=== PATIENT | male | born 1955 | race Caucasian/White ===

== ENCOUNTER 2019-07-12 18:32 | Inpatient (IN) ==
[2019-07-12 20:09] LABS: Hematocrit (blood only) 44.7 % (42-52); Hemoglobin 15.8 g/dL (14.0-18.0); Mean Corpuscular Hemoglobin 32.5 pg (25-34); Mean Corpuscular Hgb Conc 35.3 g/dL (32-36); Mean Platelet Volume 9.3 fL (7.4-10.4); Platelet Count 233 K/uL (130-400); RDW Coefficient of Variation 13.7 % (11.5-14.5); RDW Standard Deviation 45.8 fL (36.4-46.3); Red Blood Count 4.86 M/uL (4.7-6.1); White Blood Count 7.21 K/uL (4.8-10.8)
--- NOTE | 2019-07-12 20:11 | CT Scan Report ---
CT head/brain wo con CLINICAL HISTORY: 64 years-old Male with stroke/TIA symptoms. Acute strokelike symptoms TECHNIQUE: Multiple axial CT images of the head were obtained without contrast. A dose lowering tech nique was utilized adhering to the principles of ALARA. CT DOSE: 537.48 mGy.cm COMPARISON: None. FINDINGS: No acute intracranial hemorrhage, midline shift, intracranial mass, hydrocephalus, territorial ischem ia or abnormal extra-axial collection. The calvarium is intact. Trace bilateral mastoid effusions. Mild mucosal thickening of the paranasal sinuses. Soft tissues and orbits are unremarkable. IMPRESSION: No acute intracranial abnormality. The above report was generated using voice recognition software. It may contain grammatical, syntax o r spelling errors. Electronically signed by: Wagner Bermeo M.D. 07/12/2019 8:10 PM
[2019-07-12 20:22] LABS: Partial Thromboplastin Ratio 1.1; Partial Thromboplastin Time 29.3 Seconds (21.0-31.0); Prothrombin Time 10.4 Seconds (9.0-12.0)
[2019-07-12 20:27] LABS: Albumin Level 3.9 gm/dl (3.4-5.0); BUN Creatinine Ratio 11.8 (10-20); Calcium 9.6 mg/dl (8.5-10.1); Creatinine Clr Calc Pharmacy 92.1 ml/min; Est GFR (African American) 99.5; Est GFR (Non-African American) 85.8; Magnesium 2.2 mg/dl (1.8-2.4); Potassium 4.3 mmol/L (3.5-5.1)
[2019-07-12 20:33] LABS: Bilirubin,Total 0.7 mg/dl (0.2-1); Globulin 3.8 gm/dl (2.5-4.0); Total Protein 7.7 gm/dl (6.4-8.2)
--- NOTE | 2019-07-12 21:09 | XRay Report ---
XR chest 1V portable HISTORY: 64 years-old Male stroke alert acute stroke like symptoms COMPARISON: None available TECHNIQUE: Portable AP view of the chest FINDINGS: Cardiomediastinal and hilar silhouettes are within normal limits. Mild wall thickening of the lung ap ices. Mild chronic interstitial coarsening of the lung bases. Suggested emphysema. No pneumothorax, p leural effusion, focal airspace consolidation or overt pulmonary edema. Degenerative changes of the s houlders and spine. Mild convex left curvature of the upper thoracic spine. IMPRESSION: No acute process. The above report was generated using voice recognition software. It may contain grammatical, syntax o r spelling errors. Electronically signed by: Wagner Bermeo M.D. 07/12/2019 9:07 PM
[2019-07-12] MEDS ORDERED: OPTIRAY 320 125ml IV PRN (21:46)
--- NOTE | 2019-07-12 22:05 | CT Scan Report ---
CT angio neck with con, CT angio head w con CLINICAL HISTORY: 64 years-old Male with Pt c/o word aphasia. Acute strokelike symptoms COMPARISON STUDY: CT of the head of same day TECHNIQUE: Following the IV administration of 118 mL of Optiray 320, CT angiogram of the head and nec k was performed from the aortic arch to the skull apex. Images are reviewed in the axial, sagittal, a nd coronal planes. 3-D MIPS images are created and assessed. IV contrast was administered without com plication. All measurements were calculated based on NASCET criteria. A dose lowering technique was utilized adhering to the principles of ALARA. FINDINGS: Unremarkable thoracic aortic arch. Patency of the imaged bilateral subclavian arteries. Patent bilate ral common carotid arteries. Internal carotid arteries, middle and anterior cerebral arteries are wid eliana patent and unremarkable. Codominant vertebral arteries and basilar artery appear normal and paten t. origin of the left posterior cerebral artery. Bilateral posterior cerebral arteries are valencia nt. Cerebral venous sinuses are patent. No abnormal intra-axial enhancement. No pneumothorax. Mild pleural parenchymal scarring of the lung apices. Soft tissues are unremarkable. Mild paranasal sinus disease. No acute fracture. Degenerative changes noted about the spine. IMPRESSION:Unremarkable CTA of the head and neck The above report was generated using voice recognition software. It may contain grammatical, syntax o r spelling errors. Electronically signed by: Wagner Bermeo M.D. 07/12/2019 10:03 PM
[2019-07-12] MEDS ORDERED: MAGNESIUM SULFATE / D5W 1 GM/100 ML BAG IV ONE (23:54)
[2019-07-12] MEDS ORDERED: ASPIRIN CHEW 324 MG PO STA (23:54)
--- NOTE | 2019-07-13 00:06 | Emergency Department Note ---
Entered by Margo Santana acting as a scribe for Alex Tomlin MD History of Present Illness General Chief complaint: Illness Stated complaint: slight TIA symptoms around 0930 am Time Seen by Provider: 07/12/19 20:14 Source: patient History of Present Illness Onset (ago): hour(s) Location: head (Neruologic deficit) Pain Consistency: + other (Episode) Maximum Pain Intensity: 0 Quality: + other (Neurologic deficit) Associated symptoms: + other (Positive trouble reading/speaking words. Negative falls, dizziness.) Treatments prior to arrival: none The patient is a 64 year old male presenting to the Emergency Department atiya vásquez of an episode of an episode of a neurologic deficit starting at 0930 this morning. The patient reports that he was reading this morning and was having trouble reading the beginning of a word. He explains that he could see the entire word but could only read and speak the second half of words with 3 or more syllables. He notes that this episode lasted for about 15 to 30 minutes. He adds that he has felt normal since this event. The patient reports that he doesnt have a PCP as he just moved to the [facility]. He notes that he has never experienced these symptoms before. He notes that he took no medications for this episode [employer]. He denies falls, dizziness, feeling off balance, smoking tobacco and drug use. Home Medications Home Medications Medication Instructions Recorded Confirmed Type cholecalciferol (vitamin D3) 1,000 unit PO DAILY 07/12/19 07/12/19 History [Vitamin D3] Allergies Allergy/AdvReac Type Severity Reaction Status Date / Time No Known Allergies Allergy Verified 07/12/19 23:41 Past Med/Surg History Medical History Hypochondriacal disorder Surgical History History of knee surgery Social History Feels Safe at Home: Yes Smoking Status: Never smoker Review of Systems See HPI for pertinent positives & negatives. and A total of 10 systems reviewed and were otherwise negative Physical Exam Vital Signs Vital Signs - 24 hr 07/12/19 19:18 07/12/19 20:29 07/12/19 20:30 Temperature 36.8 C 36.8 C Temperature Source Oral Oral Sepsis Recent Fever Within 48 Hours No Sepsis Action Taken by Nursing No Action Required Pulse Rate 75 63 Pulse Rate [Left Apical] 58 L Respiratory Rate 20 20 17 Respiratory Effort / Characteristics Non-Labored Non-Labored Respiratory Depth Normal Normal Blood Pressure 165/125 H 120/61 Blood Pressure [Right Arm] 117/59 L Blood Pressure Mean 138 80 Blood Pressure Mean [Right Arm] 78 Pulse Oximetry 99 99 Oxygen Delivery Method Room Air Room Air 07/12/19 21:00 07/12/19 21:30 07/13/19 00:00 Temperature Temperature Source Sepsis Recent Fever Within 48 Hours Sepsis Action Taken by Nursing Pulse Rate 57 L 60 Pulse Rate [Left Apical] 57 L Respiratory Rate 15 19 Respiratory Effort / Characteristics Non-Labored Respiratory Depth Normal Blood Pressure 116/67 146/79 H Blood Pressure [Right Arm] 165/93 H Blood Pressure Mean 83 101 Blood Pressure Mean [Right Arm] 117 Pulse Oximetry 99 99 Oxygen Delivery Method Room Air GENERAL: Awake, alert, well-appearing, in no acute distress HENT: Normocephalic, atraumatic. Oropharynx unremarkable. EYES: Normal conjunctiva. Sclera non-icteric. NECK: Supple. No nuchal rigidity. FROM. No JVD. RESPIRATORY: Clear to auscultation. CARDIAC: Regular rate, normal rhythm. Extremities warm and well perfused. Pulses equal. ABDOMEN: Soft, non-distended. No tenderness to palpation. No rebound or guarding. No masses. RECTAL: Deferred. MUSCULOSKELETAL: Chest examination reveals no tenderness. The back is symmetrical on inspection without obvious abnormality. There is no CVA tenderness to palpation. No joint edema. LOWER EXTREMITIES: Calves are equal size bilaterally and non-tender. No edema. No discoloration. NEURO: Normal sensorium. No sensory or motor deficits noted. SKIN: No rash or jaundice noted. Course 1929: The patient was evaluated in room B6, and a complete history and physical examination were performed. 2229: I reevaluated the patient at this time. Administered Medications Ioversol (Optiray 320 125ml) 118 ml IV ONCE PRN PRN Reason: Interaction Checking Stop: 07/16/19 21:45 Last Admin: 07/12/19 21:47 Dose: 118 ml Documented by: [id number] Medical Decision Making Differential Diagnosis Differential diagnosis: Etiologies such as metabolic, infection, hypo/hyperglycemia, electrolyte ab normalities, cardiac sources, intracerebral event, toxicologic, neurologic, as well as others were entertained. Medical Records Attestation: I reviewed the patient's medical records. Home Medications Current Medication List: was personally reviewed by me Laboratory Data Attestation: I reviewed the patient's lab results. Result diagrams: 07/12/19 19:48 07/12/19 19:48 Lab Results 07/12/19 07/12/19 07/12/19 Range/Units 19:48 19:48 19:48 WBC 7.21 (4.8-10.8) K/uL RBC 4.86 (4.7-6.1) M/uL Hgb 15.8 (14.0-18.0) g/dL Hct 44.7 (42-52) % MCV 92.0 (80-100) fL MCH 32.5 (25-34) pg MCHC 35.3 (32-36) g/dL RDW Std Deviation 45.8 (36.4-46.3) fL RDW Coeff of Moustapha 13.7 (11.5-14.5) % Plt Count 233 (130-400) K/uL MPV 9.3 (7.4-10.4) fL PT 10.4 (9.0-12.0) Seconds INR 1.0 (0.9-1.1) APTT 29.3 (21.0-31.0) Seconds PTT Ratio 1.1 Sodium 139 (136-145) mmol/L Potassium 4.3 (3.5-5.1) mmol/L Chloride 107 (98-107) mmol/L Carbon Dioxide 29 (21-32) mmol/L Anion Gap 3.0 (3-11) BUN 11 (7-18) mg/dl Creatinine 0.93 (0.6-1.4) mg/dl Est Cr Clr Drug Dosing 92.1 ml/min Est GFR ( Amer) 99.5 Est GFR (Non-Af Amer) 85.8 BUN/Creatinine Ratio 11.8 (10-20) Glucose 91 (70-99) mg/dl Calcium 9.6 (8.5-10.1) mg/dl Magnesium 2.2 (1.8-2.4) mg/dl Total Bilirubin 0.7 (0.2-1) mg/dl AST 19 (15-37) U/L ALT 24 (12-78) U/L Alkaline Phosphatase 97 (45-117) U/L Total Protein 7.7 (6.4-8.2) gm/dl Albumin 3.9 (3.4-5.0) gm/dl Globulin 3.8 (2.5-4.0) gm/dl Albumin/Globulin Ratio 1.0 (0.9-2) Imaging Data Radiologist's Impression: Radiology results as stated below per my review and the radiologist's interpretation: CT head/brain wo con CLINICAL HISTORY: 64 years-old Male with stroke/TIA symptoms. Acute strokelike symptoms TECHNIQUE: Multiple axial CT images of the head were obtained without contrast. A dose lowering technique was utilized adhering to the principles of ALARA. CT DOSE: 537.48 mGy.cm COMPARISON: None. FINDINGS: No acute intracranial hemorrhage, midline shift, intracranial mass, hydrocephalus, territorial ischemia or abnormal extra-axial collection. The calvarium is intact. Trace bilateral mastoid effusions. Mild mucosal thickening of the paranasal sinuses. Soft tissues and orbits are unremarkable. IMPRESSION: No acute intracranial abnormality. The above report was generated using voice recognition software. It may contain grammatical, syntax or spelling errors. Electronically signed by: Wagner Bermeo M.D. 07/12/2019 8:[address] angio neck with con, CT angio head w con CLINICAL HISTORY: 64 years-old Male with Pt c/o word aphasia. Acute strokelike symptoms COMPARISON STUDY: CT of the head of same day TECHNIQUE: Following the IV administration of 118 mL of Optiray 320, CT angiogram of the head and neck was performed from the aortic arch to the skull apex. Images are reviewed in the axial, sagittal, and coronal planes. 3-D MIPS images are created and assessed. IV contrast was administered without complication. All measurements were calculated based on NASCET criteria. A dose lowering technique was utilized adhering to the principles of ALARA. FINDINGS: Unremarkable thoracic aortic arch. Patency of the imaged bilateral subclavian arteries. Patent bilateral common carotid arteries. Internal carotid arteries, middle and anterior cerebral arteries are widely patent and unremarkable. Codominant vertebral arteries and basilar artery appear normal and patent. origin of the left posterior cerebral artery. Bilateral posterior cerebral arteries are patent. Cerebral venous sinuses are patent. No abnormal intra-axial enhancement. No pneumothorax. Mild pleural parenchymal scarring of the lung apices. Soft tissues are unremarkable. Mild paranasal sinus disease. No acute fracture. Degenerative changes noted about the spine. IMPRESSION:Unremarkable CTA of the head and neck The above report was generated using voice recognition software. It may contain grammatical, syntax or spelling errors. Electronically signed by: Wagner Bermeo M.D. 07/12/2019 10:[address] angio neck with con, CT angio head w con CLINICAL HISTORY: 64 years-old Male with Pt c/o word aphasia. Acute strokelike symptoms COMPARISON STUDY: CT of the head of same day TECHNIQUE: Following the IV administration of 118 mL of Optiray 320, CT angiogram of the head and neck was performed from the aortic arch to the skull apex. Images are reviewed in the axial, sagittal, and coronal planes. 3-D MIPS images are created and assessed. IV contrast was administered without complication. All measurements were calculated based on NASCET criteria. A dose lowering technique was utilized adhering to the principles of ALARA. FINDINGS: Unremarkable thoracic aortic arch. Patency of the imaged bilateral subclavian arteries. Patent bilateral common carotid arteries. Internal carotid arteries, middle and anterior cerebral arteries are widely patent and unremarkable. Codominant vertebral arteries and basilar artery appear normal and patent. origin of the left posterior cerebral artery. Bilateral posterior cerebral arteries are patent. Cerebral venous sinuses are patent. No abnormal intra-axial enhancement. No pneumothorax. Mild pleural parenchymal scarring of the lung apices. Soft tissues are unremarkable. Mild paranasal sinus disease. No acute fracture. Degenerative changes noted about the spine. IMPRESSION:Unremarkable CTA of the head and neck The above report was generated using voice recognition software. It may contain grammatical, syntax or spelling errors. Electronically signed by: Wagner Bermeo M.D. 07/12/2019 10:03 PM XR chest 1V portable HISTORY: 64 years-old Male stroke alert acute stroke like symptoms COMPARISON: None available TECHNIQUE: Portable AP view of the chest FINDINGS: Cardiomediastinal and hilar silhouettes are within normal limits. Mild wall thickening of the lung apices. Mild chronic interstitial coarsening of the lung bases. Suggested emphysema. No pneumothorax, pleural effusion, focal airspace consolidation or overt pulmonary edema. Degenerative changes of the shoulders and spine. Mild convex left curvature of the upper thoracic spine. IMPRESSION: No acute process. The above report was generated using voice recognition software. It may contain grammatical, syntax or spelling errors. Electronically signed by: Wagner Bermeo M.D. 07/12/2019 9:07 PM MRI of the head: Couple small foci of restricted diffusion/infarcts in the right occipital lobe, mild involutional changes. Mild sinus mucosal thickening. ECG Data Attestation: I personally reviewed and interpreted this ECG as follows: Indication: altered mental status Rate (beats per minute): 71 Rhythm: normal sinus Findings: no ST depression, no ST elevation, no acute ischemic change and no prolonged QT Comparison ECG Date: no prior available Blood Pressure Blood Pressure Findings: Elevated blood pressure MDM Narrative This is a 64-year-old male who presents emergency department complaining of issues with his vision that started earlier today. By the time the patient arrived in the emergency department his symptoms have resolved. Patient was sent for CT of the head as well as a CTA of the head and neck. This does not show any acute process. Using shared medical decision-making with the patient along with the fact that the patient does not have a primary care physician here we made the decision to send the patient for an MRI of the head. This was concerning for 2 CVAs in the occipital lobe. I believe that this would be consistent with the patient's visual disturbance. I discussed my findings with the patient and his . As he does not have a primary care physician the d ecision was made to admit him to the hospital. He was given 324 mg of aspirin here as well as magnesium. I did discuss the case with the hospitalist service who agreed to admit the patient. Patient and family were in agreement with the treatment plan. Impression & Plan Visual disturbance, Acute CVA (cerebrovascular accident), Hypertension Discharge Plan Visit Data Chief Complaint: Illness Stated Complaint: slight TIA symptoms around 0930 am ED Provider: Alex Tomlin Discharge Problem: Visual disturbance, Acute CVA (cerebrovascular accident), Hypertension Forms Stand Alone Forms: My [employer] Prescriptions Prescriptions: No Action cholecalciferol (vitamin D3) [Vitamin D3] 1,000 unit Capsule 1,000 unit PO DAILY RF: 0 Referrals Referrals: PCP,NO [Primary Care Provider] - The scribe's documentation has been prepared under my direction and personally reviewed by me in its entirety. I confirm that the note above accurately reflects all work, treatment, procedures, and medical decision making performed by me.
[2019-07-13 00:18] LABS: Thyroid Stimulating Hormone 2.91 uIu/ml (0.300-4.500)
--- NOTE | 2019-07-13 00:25 | History & Physical Report ---
Date of Service July 13, 2019 Assessment & Plan (1) Acute CVA (cerebrovascular accident): Rule out embolic etiology given MRI initial read findings Hypertension, elevated secondary to above History skin cancer left ear status post surgery Medical telemetry Neurochecks Aspirin, statin Rx for secondary stroke prevention Check lipid profile TTE RE stroke Neurology consult RE stroke Permissive hypertension for now. DVT prophylaxis. Lovenox subcu Full code History of Present Illness Chief Complaint: Reading problems Primary Care Provider: NO PCP History obtained from patient, family, and records. Medical history significant for skin cancer status post surgery. Patient recently relocated to [place] from [place], [place] to be with his . Yesterday morning patient encounter reading problems. Trouble understanding the right side of the word and not the left. Episode lasting about 15 minutes. Patient denies headache, extremity weakness, chest pain, S OB symptoms. No slurred speech as per account. Of note, patient was taking baby aspirin for years for unclear reasons up until a few weeks ago when when he read that he should not be taking it if without reason. [facility] for [facility]. Patient directed to the ER by [facility]. At the ER, aspirin given for stroke findings on MRI. 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 Allergies Allergy/AdvReac Type Severity Reaction Status Date / Time No Known Allergies Allergy Verified 07/12/19 23:41 Home Medications Home Medications Medication Instructions Recorded Confirmed Type cholecalciferol (vitamin D3) 1,000 unit PO DAILY 07/12/19 07/12/19 History [Vitamin D3] Past Med/Surg History Medical History Hypochondriacal disorder Surgical History History of knee surgery Social History Preferred Language: German Communication Ability: Effective 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 Required: No Beliefs That Will Affect Care: None Current Living Situation: Spouse Other Information That Helps Us Care for You: No Feels Safe at Home: Yes Safety Concerns: Feels Safe At This Time Smoking Status: Never smoker Do You Dip or Chew Tobacco: No ; Hx Alcohol Use: No Hx Substance Use: No Review of Systems Review of Systems: As per HPI, all 10 systems reviewed, all other ROS negative Physical Exam Physical Exam: GENERAL: Comfortable, no respiratory distress SKIN: Normal color, warm HEENT: [place] palpebral conjunctivae, no ptosis, dry buccal mucosa NECK : Supple, no tenderness CHEST : CTA, no tenderness HEART : Bradycardic, no obvious murmurs ABDOMEN: Some distention, nontender EXTREMITIES : No LE swelling/tenderness, no other conspicuous deformities noted NEUROLOGIC : Coherent, proficiently near and distance reading, bilateral EOM equal, no facial asymmetry, no other gross focality Results & Data Vital Signs (Past 12 Hours) Vital Signs Temp Pulse Pulse Resp BP BP Pulse Ox 07/13/19 00:00 57 L 19 165/93 H 99 07/12/19 21:30 60 19 146/79 H 99 07/12/19 21:00 57 L 15 116/67 07/12/19 20:30 63 17 120/61 07/12/19 20:29 36.8 C 58 L 20 117/59 L 99 07/12/19 19:18 36.8 C 75 20 165/125 H 99 Laboratory Results Laboratory Results WBC 7.21 K/uL (4.8-10.8) 07/12/19 19:48 RBC 4.86 M/uL (4.7-6.1) 07/12/19 19:48 Hgb 15.8 g/dL (14.0-18.0) 07/12/19 19:48 Hct 44.7 % (42-52) 07/12/19 19:48 MCV 92.0 fL (80-100) 07/12/19 19:48 MCH 32.5 pg (25-34) 07/12/19 19:48 MCHC 35.3 g/dL (32-36) 07/12/19 19:48 RDW Std Deviation 45.8 fL (36.4-46.3) 07/12/19 19:48 RDW Coeff of Moustapha 13.7 % (11.5-14.5) 07/12/19 19:48 Plt Count 233 K/uL (130-400) 07/12/19 19:48 MPV 9.3 fL (7.4-10.4) 07/12/19 19:48 PT 10.4 Seconds (9.0-12.0) 07/12/19 19:48 INR 1.0 (0.9-1.1) 07/12/19 19:48 APTT 29.3 Seconds (21.0-31.0) 07/12/19 19:48 PTT Ratio 1.1 07/12/19 19:48 Sodium 139 mmol/L (136-145) 07/12/19 19:48 Potassium 4.3 mmol/L (3.5-5.1) 07/12/19 19:48 Chloride 107 mmol/L (98-107) 07/12/19 19:48 Carbon Dioxide 29 mmol/L (21-32) 07/12/19 19:48 Anion Gap 3.0 (3-11) 07/12/19 19:48 BUN 11 mg/dl (7-18) 07/12/19 19:48 Creatinine 0.93 mg/dl (0.6-1.4) 07/12/19 19:48 Est Cr Clr Drug Dosing 92.1 ml/min 07/12/19 19:48 Est GFR ( Amer) 99.5 07/12/19 19:48 Est GFR (Non-Af Amer) 85.8 07/12/19 19:48 BUN/Creatinine Ratio 11.8 (10-20) 07/12/19 19:48 Glucose 91 mg/dl (70-99) 07/12/19 19:48 Calcium 9.6 mg/dl (8.5-10.1) 07/12/19 19:48 Magnesium 2.2 mg/dl (1.8-2.4) 07/12/19 19:48 Total Bilirubin 0.7 mg/dl (0.2-1) 07/12/19 19:48 AST 19 U/L (15-37) 07/12/19 19:48 ALT 24 U/L (12-78) 07/12/19 19:48 Alkaline Phosphatase 97 U/L (45-117) 07/12/19 19:48 Total Protein 7.7 gm/dl (6.4-8.2) 07/12/19 19:48 Albumin 3.9 gm/dl (3.4-5.0) 07/12/19 19:48 Globulin 3.8 gm/dl (2.5-4.0) 07/12/19 19:48 Albumin/Globulin Ratio 1.0 (0.9-2) 07/12/19 19:48 TSH 2.910 uIu/ml (0.300-4.500) 07/12/19 19:48 Diagnostic Findings MRI head initial read: Couple of small foci of restricted diffusion/infarcts right occipital lobe. Mild involutional changes. CTA head and neck: Unremarkable EKG as per my interpretation rate 65, NSR, RAD, incomplete right bundle branch block, no ischemia
[2019-07-13] MEDS ORDERED: ACETAMINOPHEN 325 MG TAB PO PRN (01:54)
[2019-07-13] MEDS ORDERED: NITROGLYCERIN SL 0.4 MG/TAB TAB SL PRN (01:54)
[2019-07-13] MEDS ORDERED: PROMETHAZINE HCL 12.5 MG in SODIUM CHLORIDE 0.9% 50 ML IV PRN (01:54)
[2019-07-13] MEDS ORDERED: SODIUM CHLORIDE 0.9% 1000ML 1,000 ML IV ONE (01:54)
[2019-07-13] MEDS ORDERED: PHARMACIST DISCHARGE MED REC CONSULT PRN (01:54)
--- NOTE | 2019-07-13 06:36 | Magnetic Resonance Report ---
MRI OF THE BRAIN WITHOUT CONTRAST CLINICAL HISTORY: Pt c/o word aphasia COMPARISON STUDY: Head CT and CTA of the head July 12, 2019. TECHNIQUE: Utilizing a 1.5 Jen magnet and dedicated coil, multiplanar, multiecho imaging of the bra in was performed without IV contrast. FINDINGS: A couple of punctate foci of restricted diffusion within the right occipital lobe on axial image 10 of 44 noted. There is no mass effect. There is minimal corresponding signal abnormality on t he coronal FLAIR sequence. Ventricular system is normal. Basilar cisterns are patent. There are no ex tra-axial collections. No intracranial masses are identified on this unenhanced examination. Mild sin us mucosal thickening is noted. Orbits are unremarkable. Calvarial signal is normal. IMPRESSION: 1. A couple of punctate acute infarcts within the right occipital lobe. 2. No acute intracranial hemorrhage or mass effect. Electronically signed by: Justin Berg M.D. 07/13/2019 6:35 AM
[2019-07-13 07:08] LABS: Basophils # (auto) 0.01 K/uL (0-0.2); Basophils % (auto) 0.2 %; Eosinophils # (auto) 0.17 K/uL (0-0.5); Eosinophils % (auto) 3.2 %; Hematocrit (blood only) 40.6 % (42-52); Hemoglobin 13.9 g/dL (14.0-18.0); Immature Granulocytes # (auto) 0.01 K/uL (0.00-0.02); Immature Granulocytes % (auto) 0.2 %; Lymphocytes # (auto) 1.41 K/uL (1.2-3.4); Lymphocytes % (auto) 26.6 %; Mean Corpuscular Hemoglobin 31.8 pg (25-34); Mean Corpuscular Hgb Conc 34.2 g/dL (32-36); Mean Corpuscular Volume 92.9 fL (80-100); Mean Platelet Volume 9.6 fL (7.4-10.4); Monocytes # (auto) 0.38 K/uL (0.11-0.59); Monocytes % (auto) 7.2 %; Neutrophils # (auto) 3.32 K/uL (1.4-6.5); Neutrophils % (auto) 62.6 %; Platelet Count 217 K/uL (130-400); RDW Coefficient of Variation 13.8 % (11.5-14.5); RDW Standard Deviation 46.4 fL (36.4-46.3); Red Blood Count 4.37 M/uL (4.7-6.1)
[2019-07-13 07:26] LABS: BUN Creatinine Ratio 11.4 (10-20); Calcium 8.9 mg/dl (8.5-10.1); Creatinine Clr Calc Pharmacy 100.7 ml/min; Est GFR (Non-African American) 91.4; Potassium 4.2 mmol/L (3.5-5.1)
[2019-07-13] MEDS ORDERED: ATORVASTATIN 40 MG TAB PO SCH (09:00)
[2019-07-13] MEDS ORDERED: ENOXAPARIN INJ 40 MG/0.4 ML SYR SQ SCH (09:00)
[2019-07-13] MEDS ORDERED: CHOLECALCIFEROL 1,000 UNITS TAB PO SCH (09:00)
--- NOTE | 2019-07-13 14:03 | Neurology Consultation ---
Date of Consultation July 13, 2019 Assessment & Plan (1) Acute CVA (cerebrovascular accident): 1. MRI with right occipital lobe infarct 2. CTA head and neck -no acute finding 3. TTE- no ASD 4. start plavix 75 mg and aspirin 81 mg daily for 21 days then stop plavix continue aspirin 5. optimize HTN, HLD LDL <70 6. need to establish with PCP 7. needs ophthalmology exam with visual webster prior to return to driving 8. life style changes with diet and exercise 9. ZIO out patient monitoring follow up in 4-6 week with Sveta CAPONE, neurology Supervising Physician Co-Signing Physician Notes Patient was seen and examined. I Agree with Sveta Melton PA-C as noted below. A 64 year old male not on ASA admitted with intermittent visual disturbance which has resolved. MRI reviewed shows punctate infarcts in right occipital lobe. Etiology looks embolic. CTA head and neck negative for high grade stenosis. TTE no cardiac source of embolism. On examine EOMI and VF appear full to confrontation. Recommend ASA 81 mg daily and PLavix 75 mg daily for 21- days then ASA 81 mg daily. Recommend Lipitor 40 mg daily. Recommend outpatient Clarita patch for eval of paroxysmal Afib. Outpatient follow up with neurology in 8-weeks. History of Present Illness Reason for Consultation: stroke Requesting Physician: Linda Velazquez DO Attending Physician: Linda Velazquez DO History of Present Illness Karl is a 64 year old male who has no significant PMH. He moved here recently and had not established with a PCP. He was at [facility] and was reading on his I pad and had a problem reading the words. This lasted about 15 minutes and resolved. He drove himself home and told his what happen and she wanted him to go to the ED. He stopped taking aspirin 81 mg about 3 months ago because he heard is caused bleeding. He had no slurred speech, facial droop. He did admit to doing some strenuous stretching movement of his neck prior to the event. He is currently not experiencing any issues, denies any family history of stroke. never smoked is retired from the [employer], minimal EtOH use, moderate caffeine use, no other drugs. denies CP, SOB, abdominal pain, one sided weakness, numbness tingling, V, N, current vision issues. Allergies Allergy/AdvReac Type Severity Reaction Status Date / Time No Known Allergies Allergy Verified 07/12/19 23:41 Home Medications Home Medications Medication Instructions Recorded Confirmed Type cholecalciferol (vitamin D3) 1,000 unit PO DAILY 07/12/19 07/12/19 History [Vitamin D3] aspirin 81 mg PO DAILY #90 tab 07/13/19 Rx atorvastatin 40 mg PO QAM #30 tab 07/13/19 Rx clopidogrel 75 mg PO DAILY #21 tab 07/13/19 Rx Patient History Medical History Hypochondriacal disorder Surgical History History of knee surgery Social History Preferred Language: Niuean Communication Ability: Effective Cloth Printer Required: No Beliefs That Will Affect Care: None Current Living Situation: Spouse Other Information That Helps Us Care for You: No Feels Safe at Home: Yes Safety Concerns: Feels Safe At This Time Smoking Status: Never smoker Do You Dip or Chew Tobacco: No ; Hx Alcohol Use: No Hx Substance Use: No Physical Exam Physical Exam: Physical Exam: Constitutional: appearance nourished, healthy and normal Ears, Nose, Mouth and Throat: mucous membranes moist, no injection and skin normal, eyes normal Cardiovascular: normal S-1 and S-2 and regular rate and rhythm Respiratory: clear to auscultation (CTA) and no rales, ronchi or wheeze Musculoskeletal: no peripheral edema and good distal pulses Skin: no stigmata of neurocutaneous disease noted and normal and intact Eyes: extraocular muscles intact (EOMI) and pupils equal, round and reactive to light (PERRL), gross visual webster intact NEUROLOGIC EXAMINATION: Mental status: Alert and interactive Oriented to full date and location Oriented to person Speech fluent with no evidence of aphasia Cranial Nerves smile eye brow raise symmetric Reflexes: Deep tendon reflexes were symmetrical and graded 2/5. Sensory: intact to light and cool touch Coordination: finger to nose no bi pass Gait/Stance: Posture normal. sitting in bed side chair Motor: Negative for pronator drift of out stretched arms with eyes closed. Strength: biceps triceps deltoids hand automotive brake adjuster bilaterally 5/5, hip flex 5/5 Results & Data Vital Signs (Past 12 Hours) Vital Signs Temp Pulse Pulse Pulse Resp BP Pulse Ox 07/13/19 12:15 36.7 C 58 L 18 116/67 98 07/13/19 09:24 49 L 07/13/19 07:53 36.6 C 48 L 18 124/67 100 07/13/19 07:18 49 L 07/13/19 04:27 36.4 C L 68 18 129/68 97 Laboratory Results Abnormal lab results 07/13/19 Range/Units 06:27 RBC 4.37 L (4.7-6.1) M/uL Hgb 13.9 L (14.0-18.0) g/dL Hct 40.6 L (42-52) % RDW Std Deviation 46.4 H (36.4-46.3) fL Diagnostic Findings CXR-No acute process. CT head-No acute intracranial abnormality. MRI brain -A couple of punctate acute infarcts within the right occipital lobe. No acute intracranial hemorrhage or mass effect. CTA head and neck-Unremarkable CTA of the head and neck TTE- 55-60% EF, no ASD
[2019-07-13 15:55] VITALS: BP 120/71; TEMP 98.4; O2SAT 95
[2019-07-13] MEDS ORDERED: STROKE PATIENT DISCHARGE STA (16:31)
--- NOTE | 2019-07-13 16:50 | Discharge Summary ---
Date of Service July 13, 2019 Admission HPI Per Admitting Provider History obtained from patient, family, and records. Medical history significant for skin cancer status post surgery. Patient recently relocated to [place] from [place], [place] to be with his . Yesterday morning patient encounter reading problems. Trouble understanding the right side of the word and not the left. Episode lasting about 15 minutes. Patient denies headache, extremity weakness, chest pain, S OB symptoms. No slurred speech as per account. Of note, patient was taking baby aspirin for years for unclear reasons up until a few weeks ago when when he read that he should not be taking it if without reason. Patient's called [facility] to inquire about available appointments for new patients. Patient directed to the ER by [facility]. At the ER, aspirin given for stroke findings on MRI. 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 Admission Exam Per Admitting Provider GENERAL: Comfortable, no respiratory distress SKIN: Normal color, warm HEENT: Lorane palpebral conjunctivae, no ptosis, dry buccal mucosa NECK : Supple, no tenderness CHEST : CTA, no tenderness HEART : Bradycardic, no obvious murmurs ABDOMEN: Some distention, nontender EXTREMITIES : No LE swelling/tenderness, no other conspicuous deformities noted NEUROLOGIC : Coherent, proficiently near and distance reading, bilateral EOM equal, no facial asymmetry, no other gross focality Principal Diagnosis CVA Discharge Data Allergies Allergy/AdvReac Type Severity Reaction Status Date / Time No Known Allergies Allergy Verified 07/12/19 23:41 Consultations 07/12/19 23:58 ED Decision to Admit Stat 07/13/19 01:54 Consult Case Management - Discharge Planning Routine Consult Neurology Routine Ordered Studies 07/12/19 19:28 CT head/brain wo con Stat 07/12/19 21:21 CT angio head w con Stat CT angio neck with con Stat MR brain wo con Urgent Hospital Course (1) Acute CVA (cerebrovascular accident): Admitted to the Hospitalist service and placed on telemetry with intermittent visual disturbances. Symptoms resolved on admission and did not return. MRI revealed punctate infarcts in the right occipital lobe. Etiology appeared embolic. CTA of head and neck were negative for high grade stenosis. TTE revealed no cardiac source of embolism. DAPT was recommended with ASA 81 and Plavix x 21 days, then ASA indefinitely. There were no noted arrhythmias on telemetry during his hospitalization but an event monitor was recommended at discharge to complete the workup. Outpatient follow-up with Neurology was rec ommended in 8 weeks time. At time of discharge he was hemodynamically stable and afebrile and was tolerating PO. He was mentating and ambulating at baseline with complete resolution of visual symptoms. Neuro exam was negative for gross focal deficits. Heart exam revealed a normal S1/2 with no murmurs, gallops or rubs. Lungs were clear to auscultation. He was discharged in stable condition with close primary care follow-up recommended. Total Time Total Time Spent Total Time Spent (In Minutes): 60 Total Time Includes: Examination of the Patient, Discharge Planning, Medication Reconciliation, Communication With Other Providers and Other (arranged outpatie nt follow-up) Discharge Plan Discharge Items Patient Disposition: Home - Self-Care Reason For Visit: CVA, PX REQ FOR PRIVATE ROOM Discharge Diagnosis: CVA Condition on Discharge: Good Activity: Resume your previous activity Non-emergency contact: Primary Care Provider and Neurologist Call non-emergency contact if: you have any medication questions, your symptoms worsen, your pain is not controlled, your pain is worsening, your pain is unusual for you, your pain is concerning for you and you have a fever Follow-up/Referrals: Gabriela Baez [Other] Diet: Regular Addtl Attending Provider Instructions: Please take all medications as instructed on discharge list below. You will need to take Plavix 75mg once/day for 21 days, and continue on aspirin therapy indefinitely. It is recommended that you undergo an event monitor (Zio patch) which you can obtain from your primary care provider at follow-up. Please follow-up with [facility] Neurology in 6-8 weeks for a recheck. You are scheduled with your primary care provider at the following time/date: 07/21/2019 1:00 PM Joan Baez DO [employer] Addtl Sexer Provider Instructions: Risk Factors for Stroke: You can reduce your chances of stroke by working with your medical provider to adopt a healthy lifestyle. Some specific ways to lower your chance of stroke are: * If you are a smoker, now is the time to stop smoking cigarettes * If you are diabetic, improve the control of your blood sugars * Avoid excessive amounts of alcohol * Control high blood pressure * Lose weight if you are overweight * Be sure to lead an active lifestyle * Eat a healthy diet low in salt, cholesterol and fat You should know about other risk factors for stroke that you are unable to control. These include: * Age 55 years or older * Male gender * Certain racial groups: , or / * Family History of Stroke, Mini stroke or Heart Attack * Sickle Cell Disease Follow Up: It is important for you to keep your follow up appointments with your medical provider. Who to Call and When: Medical Emergencies: Call 911 immediately if you experience any of the following warning signs and symptoms of Stroke: * Sudden numbness or weakness of the face, arm or leg, especially on one side of the body * Sudden confusion, trouble speaking or understanding * Sudden trouble seeing in one or both eyes * Sudden trouble walking, dizziness, loss of balance or coordination * Sudden severe headache with no cause Do not delay calling 911 if you experience any warning signs or symptoms of a stroke. Delay in seeking medical attention may affect what treatments can be given to you. . Pending Studies at Discharge: No Stand-Alone Forms: Medications to Prevent Stroke, My [facility] Medications and DC Order Prescriptions: New atorvastatin 40 mg Tablet 40 mg PO QAM Qty: 30 RF: 2 aspirin 81 mg tablet,delayed release (DR/EC) 81 mg PO DAILY Qty: 90 RF: 1 clopidogrel 75 mg tablet 75 mg PO DAILY Qty: 21 RF: 0 Continued cholecalciferol (vitamin D3) [Vitamin D3] 1,000 unit Capsule 1,000 unit PO DAILY RF: 0 Discharge Orders: Discharge Order (Routine); Ordered 07/13/19 Ordered By: Linda Velazquez Admission Data Admit Date/Time: 07/13/19 00:27 Attending Provider: Linda Velazquez Admit Provider: Gerald Conroy Primary Care Provider: PCP,NO Other Providers: Winston Martinez Other Interventions: Discharge Summary Assessment (RN) Last Done: 07/13/19 16:57 DC Date/Time DO NOT enter until pt leaves facility: 07/13/19 18:36
[2019-07-13 16:58] VITALS: PULSE 68
--- NOTE | 2019-07-13 17:10 | Pharmacy Report ---
Pharmacist Stroke Counseling - Date of Service July 13, 2019 - Scope: Pharmacy has been consulted to provide medication discharge counseling for this patient admitted with acute cerebrovascular accident and brain MRI showed right occipital lobe infarct as per the Pharmacist Discharge Counseling for Stroke Patients Protocol. - Medications on Discharge: Home Medications Medication Instructions Recorded Confirmed cholecalciferol (vitamin D3) 1,000 unit PO DAILY 07/12/19 07/12/19 [Vitamin D3] New Rx's Medication Instructions Recorded aspirin 81 mg PO DAILY #90 tab 07/13/19 atorvastatin 40 mg PO QAM #30 tab 07/13/19 clopidogrel 75 mg PO DAILY #21 tab 07/13/19 - Action: The above medications, specifically ones for stroke treatment/prophylaxis, have been reviewed in detail with the patient and/or patient vaccine customer representative(s) prior to discharge. This includes indication, common adverse reactions, drug interactions, and medication administration. Medication counseling has been employed using the teach-back method to ensure understanding. - Outcome: The patient and/or patient vaccine customer representative(s) have demonstrated understanding of the medications. Please note, they are aware that the pharmacist will call them within 72 hours post-discharge to confirm that the appropriate medications are being taken and answer any further medication related questions the patient might have at that time. Contact information Individual to be contacted: Patient Phone number: [phone] (cell) Best time to call: anytime of the day Additional comments: - Patient previously on baby aspirin, stopped taking approximately 3 months ago - Patient clearly understood all of his new medications including dosing and adverse effects - Patient understands to stop Plavix following 21 days of therapy Thank you for allowing pharmacy to be involved in the care of this patient. Please call [phone] or [phone] with any additional questions
[2019-07-14] MEDS ORDERED: ASPIRIN 325 MG ECTAB PO SCH (09:00)
--- NOTE | 2019-07-15 10:59 | Pharmacy Report ---
Pharmacist Post D/C Phone Note - Phone Note: Date of phone call: July 15, 2019. Individual with whom pharmacist spoke to: ILYA SOFIA Jr The following questions were reviewed during the phone call with responses listed below each: Can you tell me the medications that you are currently taking as well as when and how you take each medication? -See Table Below When have you missed any doses of your medications? - none What side effects are you having from your medications, specifically, the new medications you were started on? - none What questions do you have about your medications? - none What problems are you having obtaining your medications? - none - picked up everything from [facility] When is your next appointment with your primary care doctor? - ThursdayJul 20. Additional comments: - Patient very pleasant to speak with, he states he is doing great. Reviewed again to stop clopidogrel after 21 days, patient aware. As per the Pharmacist Discharge Counseling for Stroke Patients Protocol, this phone call has been completed within 72 hours of discharge. Thank you for allowing us to be involved in the care of this patient. - Home Medications: Home Medications Medication Instructions Recorded Confirmed cholecalciferol (vitamin D3) 1,000 unit PO DAILY 07/12/19 07/12/19 [Vitamin D3] New Rx's Medication Instructions Recorded aspirin 81 mg PO DAILY #90 tab 07/13/19 atorvastatin 40 mg PO QAM #30 tab 07/13/19 clopidogrel 75 mg PO DAILY #21 tab 07/13/19
== END 2019-07-13 18:36 | disposition home or self-care (01) | DRG 66 ==
LOC: ED 18:32 → 2N 07-13 00:27

== ENCOUNTER 2025-04-07 11:27 | Inpatient (IN) ==
[2025-04-07] MEDS: SODIUM CHLORIDE 0.9% 500 ML IV ONE (11:54)
--- NOTE | 2025-04-07 11:54 | Emergency Department Note ---
Impression & Plan Atrial fibrillation, History of CVA (cerebrovascular accident), Palpitations, Elevated troponin ED Provider Note NAME: ILYA SOFIA Jr AGE: 70 SEX: M : 1955 ARRIVES VIA: Walk-In INFORMANT: Patient ED PROVIDER(S): Bob Brakley DO CHIEF COMPLAINT: Elevated heart rate HPI: Patient is a 70-year-old male with a past medical history of CVA, hypertension who presents to the ER for an elevated heart rate. He notes he is has had this off and on for some years. He had a back in September for 2 weeks and prior to that he did have it as well. It went away. He is noticed it for the last 4 days off and on. He feels his heart racing. He denies any dizziness or lightheadedness. No chest pain or shortness of breath with it. No belly pain. No nausea, vomiting, or diarrhea. He is otherwise asymptomatic. He was at his PCPs office and was referred in. ADDITIONAL HISTORY OBTAINED: Per HPI Chronic Medical/Social Conditions Affecting Care: Per HPI PAST MEDICAL HISTORY:See Below PAST SURGICAL HISTORY:See Below FAMILY HISTORY:See Below SOCIAL HISTORY:See Below HOME MEDICATIONS:See Below ALLERGIES:See Below VITALS:See Below PHYSICAL EXAMINATION: GENERAL: Sitting up in bed, alert, well appearing, well nourished, no distress, non-toxic EYE EXAM: normal conjunctiva. OROPHARYNX: no exudate, no erythema, lips, buccal mucosa, and tongue normal and mucous membranes are moist NECK: supple, no nuchal rigidity, no adenopathy, non-tender LUNGS: Clear to auscultation. Normal chest wall mechanics HEART: no murmurs, S1 normal and S2 normal ABDOMEN: abdomen soft, non-tender, normo-active bowel sounds, no masses, no rebound or guarding. UPPER EXTREMITIES: upper extremities are grossly normal. LOWER EXTREMITIES: No pitting edema. Calves are equal bilaterally NEURO EXAM: Normal sensorium, cranial nerves II-XII grossly intact, normal speech, no gross weakness of arms, no gross weakness of legs. MEDICAL DECISION MAKING: Patient is a 70-year-old male who presents ER for palpitations. IV was established and blood work was obtained. External records were reviewed and showed a narrow complex tachycardia rate of 132, right axis, QTc 485. Labs show no significant leukocytosis or anemia. BMP with LFTs was unremarkable. T. bili is 1.4. Troponin elevated at 30. Lipase and TSH were unremarkable. Chest x- ray was unremarkable. Patient had several episodes of an atrial tachycardia so far today. Discussed case with Dr. aPulino from cardiology. He agreed with the admission and obtaining echo. Did recommend 2.5 Lopressor. Discussed case with the hospitalist for further evaluation management treatment. Again do favor the elevated troponin is likely rate related as external records show heart rate at the 140s. Consults/Care Managements Discussions: Per [facility] Triage Nursing notes reviewed. Limited review of prior medical records performed Vital Signs: reviewed and remarkable for no significant abnormalities Differential diagnosis: Cardiac ischemia, aortic dissection, pulmonary embolism, pneumothorax, pneumonia, pericarditis, myocarditis, esophageal rupture, GERD, cholecystitis, pancreatitis, musculoskeletal, as well as other pathologies. ER treatment provided: See below Diagnostics interpreted by me include EKG and cardiac monitoring as listed below: -Cardiac Monitoring: An order was placed for continuous cardiac monitoring. The monitor shows a rate of 90 with sinus rhythm. -ECG: A-fib. 93 Normal axis PVC QTc 442 -Laboratory studies:Interpreted by me as stated above in MDM and shown below. Imaging studies: Xrays: As interpreted by me: Portable AP upright 1 view of the chest shows no focal infiltrate CTs show: none Procedures:none Critical Care: None Past Med/Surg History Problem List (Updated 04/07/25 @ 17:52 by Bob Barkley DO) Elevated troponin (Acute) Palpitations (Acute) Atrial arrhythmia History of CVA (cerebrovascular accident) (Acute) Atrial fibrillation (Acute) Medical History (Updated 04/07/25 @ 17:52 by Bob Barkley DO) Hypochondriacal disorder Hypertension Acute CVA (cerebrovascular accident) Visual disturbance Arthritis BPH (benign prostatic hyperplasia) Peyronie's disease Erectile dysfunction Surgical History (Updated 04/07/25 @ 14:30 by NHUNG Alcantara) History of knee surgery Family History (Updated 04/07/25 @ 14:31 by NHUNG Alcantara) Grandmother (Maternal) Cancer Colon Father COPD (chronic obstructive pulmonary disease) Mother Parkinson disease Grandmother (Paternal) Alcohol abuse Cancer Social History (Updated 05/29/20 @ 14:45 by Saroj Calvillo LPN) Smoking Status: Never smoker Second Hand Exposure: No; Do You Dip or Chew Tobacco: No; Tobacco Cessation Education Requested by Patient: No Hx Alcohol Use: Yes Alcohol type: beer and wine Hx Substance Use: No Preferred Language: Icelandic Communication Ability: Effective Animal Groomer Required: No Beliefs That Will Affect Care: None marital status: Current Living Situation: Spouse and Family current occupational status: retired Other Information That Helps Us Care for You: No Feels Safe at Home: Yes Safety Concerns: Feels Safe At This Time Diet: regular Assistive Devices: Glasses Allergies Allergies Allergy/AdvReac Type Severity Reaction Status Date / Time No Known Allergies Allergy Verified 04/07/25 13:02 Home Meds Home Medications Medication Instructions Recorded Confirmed omega 9-eqy-psg-fish oil 1,200 mg 1 cap PO DAILY 05/29/20 04/07/25 (144 mg-216 mg) capsule (Fish Oil) tadalafil 20 mg tablet 20 mg PO DAILY PRN Sexual Activity 04/07/25 04/07/25 valacyclovir 1 gram tablet 2 mg PO Q12 PRN Cold Sores 04/07/25 04/07/25 vitamin B complex 1 tab PO DAILY 04/07/25 04/07/25 vitamin D3 1,250 mcg (50,000 1 cap PO DAILY 04/07/25 04/07/25 unit)-vitamin K2 200 mcg capsule Previous Rx's Medication Instructions Recorded aspirin 81 mg tablet,delayed 81 mg PO DAILY #90 tabs 07/13/19 release atorvastatin 40 mg tablet 40 mg PO QAM #30 tabs 07/13/19 Results & Data (ED) Vital Signs Vital Signs - 24 hr 04/07/25 11:33 04/07/25 11:51 04/07/25 11:51 Temperature 36.7 C Temperature Source Temporal Artery Scan Pulse Rate 93 H Pulse Rate [Apical] 91 H Pulse Rhythm Pulse Rhythm [Apical] Regular Pulse Strength [Apical] Normal Respiratory Rate 18 21 Respiratory Effort / Characteristics Non-Labored Spontaneous Non-Labored Spontaneous Respiratory Depth Normal Normal Respiratory Pattern Regular Blood Pressure 105/70 Blood Pressure [Right Arm] 114/82 Blood Pressure Mean 81 Blood Pressure Mean [Right Arm] 92 Blood Pressure Position [Right Arm] Sitting Pulse Oximetry 95 98 Oxygen Delivery Method Room Air Room Air Room Air Sepsis Recent Fever Within 48 Hours No Sepsis New/Unexplained Change in Mental Status N/A Sepsis Action Taken by Nursing No Action Required Pulse Oximetry Post Tiitration 98 07/11/25 11:51 04/07/25 12:20 04/07/25 13:27 Temperature Temperature Source Pulse Rate 90 59 L Pulse Rate [Apical] 76 Pulse Rhythm Regular Pulse Rhythm [Apical] Regular Pulse Strength [Apical] Normal Respiratory Rate 19 21 Respiratory Effort / Characteristics Non-Labored Spontaneous Respiratory Depth Normal Respiratory Pattern Regular Blood Pressure Blood Pressure [Right Arm] 134/78 Blood Pressure Mean Blood Pressure Mean [Right Arm] 96 Blood Pressure Position [Right Arm] Pulse Oximetry 98 99 Oxygen Delivery Method Room Air Room Air Sepsis Recent Fever Within 48 Hours Sepsis New/Unexplained Change in Mental Status Sepsis Action Taken by Nursing Pulse Oximetry Post Tiitration 04/07/25 14:03 Temperature Temperature Source Pulse Rate 93 H Pulse Rate [Apical] Pulse Rhythm Pulse Rhythm [Apical] Pulse Strength [Apical] Respiratory Rate Respiratory Effort / Characteristics Respiratory Depth Respiratory Pattern Blood Pressure 142/76 H Blood Pressure [Right Arm] Blood Pressure Mean Blood Pressure Mean [Right Arm] Blood Pressure Position [Right Arm] Pulse Oximetry Oxygen Delivery Method Sepsis Recent Fever Within 48 Hours Sepsis New/Unexplained Change in Mental Status Sepsis Action Taken by Nursing Pulse Oximetry Post Tiitration Laboratory Data 04/07/25 11:48 04/07/25 11:48 Lab Results 04/07/25 Range/Units 11:48 WBC 6.82 (4.8-10.8) K/ul RBC 4.78 (4.70-6.10) M/uL Hgb 15.1 (14.0-18.0) g/dl Hct 43.9 (42.0-52.0) % MCV 91.8 (80.0-100.0) fL MCH 31.6 (25.0-34.0) pg MCHC 34.4 (32.0-36.0) g/dL RDW Std Deviation 43.9 (36.4-46.3) fL RDW Coeff of Moustapha 12.9 (11.5-14.5) % Plt Count 235 (130-400) K/uL MPV 9.5 (9.4-12.4) fL Immature Gran % (Auto) 0.3 % Neut % (Auto) 78.0 % Lymph % (Auto) 13.9 % [place] % (Auto) 6.0 % Eos % (Auto) 1.5 % Baso % (Auto) 0.3 % Neut # (Auto) 5.32 (1.40-6.50) K/uL Lymph # (Auto) 0.95 L (1.20-3.40) K/uL [place] # (Auto) 0.41 (0.11-0.59) K/uL Eos # (Auto) 0.10 (0.00-0.50) K/uL Baso # (Auto) 0.02 (0.00-0.20) K/uL Immature Gran # (Auto) 0.02 (0.01-0.20) K/uL Sodium 138 (136-145) mmol/L Potassium 4.0 (3.5-5.1) mmol/L Chloride 106 (98-107) mmol/L Carbon Dioxide 28 (21-32) mmol/L Anion Gap 4 (3-11) BUN 11 (6-23) mg/dl Creatinine 1.00 (0.6-1.4) mg/dl Est Cr Clr Drug Dosing 78.8 ml/min eGFR 80.47 BUN/Creatinine Ratio 11.0 (10-20) Glucose 136 H (70-99(Fasting)) mg/dl Calcium 9.4 (8.6-10.3) mg/dl Total Bilirubin 1.4 H (0.2-1.0) mg/dl AST 24 (13-39) U/L ALT 20 (7-52) U/L Alkaline Phosphatase 73 (34-104) U/L Troponin I High Sens 31.9 H (0-20) pg/ml Total Protein 6.9 (6.0-8.3) gm/dl Albumin 3.8 (3.4-5.0) gm/dl Globulin 3.1 (2.5-4.0) gm/dl Albumin/Globulin Ratio 1.2 (0.9-2) Lipase 57 (11-82) U/L TSH 1.974 (0.300-4.500) uIu/ml Administered Medications Heparin Sodium/Dextrose (Heparin 45915 Unit/500 Ml D5w) 25,000 units in 500 mls @ 31 mls/hr IV .Q16H8M [facility]; Protocol Stop: 05/07/25 15:14 Last Admin: 04/07/25 15:26 Dose: 1,550 units/hr, 31 mls/hr Documented By: ALTAGRACIA Co-signed By: OJ Discontinued Medications Heparin Sodium/Dextrose (Heparin Iv Adult Wt-Based Standard *No* Initial Bolus Protocol) 1 each IV ONE STA; Protocol Stop: 04/07/25 14:30 Last Admin: 04/07/25 15:35 Dose: Not Given Documented By: ALTAGRACIA Sodium Chloride (Nss) 500 mls @ 999 mls/hr IV .Q31M ONE Stop: 04/07/25 12:16 Last Infusion: 04/07/25 12:59 Dose: Infused Documented By: Admin: 04/07/25 11:54 Dose: 999 mls/hr Documented By: ROGER Metoprolol Succinate (Metoprolol Succ 25mg Ext Rel Tab) 25 mg PO ONE ONE Stop: 04/07/25 14:46 Last Admin: 04/07/25 15:25 Dose: 25 mg Documented By: ALTAGRACIA Metoprolol Tartrate (Metoprolol Tartrate 1 Mg/Ml Vial) 2.5 mg IV NOW STA Stop: 04/07/25 13:25 Last Admin: 04/07/25 13:34 Dose: 2.5 mg Documented By: ROGER Imaging Data Radiologist's Impression: Chest X-Ray 04/07/25 11:46 XR chest 1V portable CLINICAL HISTORY: Chest pain, nonspecific COMPARISON STUDY: Chest radiograph July 12, 2019. FINDINGS: Lung volumes are normal. Lungs are clear. There is no pneumothorax or pleural effusion. Cardiac size is normal. Mediastinal contours are normal. There is no evidence for pulmonary edema. IMPRESSION: No acute cardiopulmonary findings. ACT 112: Negative or not required by law. Electronically signed by: Justin Berg M.D. 04/07/2025 12:09 PM Discharge Plan Visit Data Chief Complaint: Tachycardia Stated Complaint: TACHYCARDIA ED Provider: Bob Barkley Discharge Problem: Atrial fibrillation, History of CVA (cerebrovascular accident), Palpitations, Elevated troponin Patient Disposition: Admitted As Inpatient Condition: Fair Discharge Instructions Interventions: ED Discharge Assessment Last Done: 04/07/25 16:20 Discharge Problem: Atrial fibrillation Qualifiers: Atrial fibrillation type: unspecified Qualified Code(s): I48.91 - Unspecified atrial fibrillation
[2025-04-07 12:06] LABS: Hematocrit (blood only) 43.9 % (42.0-52.0); Hemoglobin 15.1 g/dl (14.0-18.0); Immature Granulocytes # (auto) 0.02 K/uL (0.01-0.20); Immature Granulocytes % (auto) 0.3 %; Mean Corpuscular Hemoglobin 31.6 pg (25.0-34.0); Mean Corpuscular Volume 91.8 fL (80.0-100.0); Platelet Count 235 K/uL (130-400); RDW Standard Deviation 43.9 fL (36.4-46.3); Red Blood Count 4.78 M/uL (4.70-6.10); White Blood Count 6.82 K/ul (4.8-10.8)
--- NOTE | 2025-04-07 12:10 | XRay Report ---
XR chest 1V portable CLINICAL HISTORY: Chest pain, nonspecific COMPARISON STUDY: Chest radiograph July 12, 2019. FINDINGS: Lung volumes are normal. Lungs are clear. There is no pneumothorax or pleural effusion. Car diac size is normal. Mediastinal contours are normal. There is no evidence for pulmonary edema. IMPRESSION: No acute cardiopulmonary findings. ACT 112: Negative or not required by law. Electronically signed by: Justin Berg M.D. 04/07/2025 12:09 PM
[2025-04-07 12:30] LABS: Alanine Aminotransferase 20.0 U/L (7-52); Albumin Globulin Ratio 1.2 (0.9-2); Alkaline Phosphatase 73.0 U/L (34-104); Anion Gap 4.0 (3-11); Bilirubin,Total 1.4 mg/dl (0.2-1.0); Blood Urea Nitrogen 11.0 mg/dl (6-23); Calcium 9.4 mg/dl (8.6-10.3); Carbon Dioxide 28.0 mmol/L (21-32); Chloride 106.0 mmol/L (98-107); Creatinine Clr Calc Pharmacy 78.8 ml/min; Globulin 3.1 gm/dl (2.5-4.0); Glucose 136.0 mg/dl (70-99(Fasting)); Lipase 57.0 U/L (11-82); Potassium 4.0 mmol/L (3.5-5.1); Sodium 138.0 mmol/L (136-145); Total Protein 6.9 gm/dl (6.0-8.3)
[2025-04-07 12:44] LABS: Thyroid Stimulating Hormone 1.974 uIu/ml (0.300-4.500)
[2025-04-07] MEDS: METOPROLOL TARTRATE 1 MG/ML VIAL IV STA (13:34)
--- NOTE | 2025-04-07 13:41 | Cardiology Consultation ---
Date of Consultation April 07, 2025 Assessment & Plan (1) Atrial fibrillation: (2) Atrial arrhythmia: (3) History of CVA (cerebrovascular accident): Plan Assessment: 70 year old male with PMHx of a CVA presents to the ER with intermittent episodes of palpitations. Initial EKG suggestive of SVT, repeat EKG suggestive of atrial fibrillation. Cardiology consulted for further assessment and recommendations. Plan: 1. Atrial fibrillation, paroxysmal 2. Atrial arrhythmia 3. History of CVA -Initial EKG at outpatient office suggestive of SVT, repeat EKG upon arrival to the ER suggestive Atrial fibrillation, rates 90's. patient received a one time dose of IV lopressor 2.5mg. -Review of telemetry demonstrates Atrial fibrillation with a conversion at 1211, NSR and also suggestive of an accelerated junctional rhythm. Given the fact that that patient had a CVA, would recommend that patient be started on anticoagulation. -Initial troponin with mild elevation, repeat and trend to peak -Start Heparin gtt -Start Toprol xl 25mg PO QD -Echocardiogram obtained, results pending. Further recommendations pending results as appropriate. Case has been discussed with Dr. Stevenson. Further recommendations regarding plan of care as per his assessment. I spent a total of 45 minutes on the date of service in preparation, delivery, documentation of the care provided to the patient excluding any time spent in the performance of separately billed services. NHUNG Treadwell [facility] Supervising Physician Co-Signing Physician Notes Attending attestation: Case reviewed with the advanced practitioner. I have personally performed a history and physical examination on the patient. I have reviewed the advanced practitioner's documentation on the date of service referenced in note, and I agree with, and take responsibility for the plan of care. Subjective: Patient with several months of progressive palpitations. Exam: Cardiovascular: Regular rhythm, no murmurs Data: Summary of echocardiogram performed 04/07/25 This study is technically adequate for evaluation of the referral indication. Sinus rhythm was present during echocardiogram study. There is mild concentric left ventricular hypertrophy. The left ventricular wall motion is normal. Left ventricular systolic function is low normal. Left Ventricular Ejection Fraction = 50-55%. The aortic root is borderline dilated, 3.8 cm. The proximal ascending order diameter is normal. Grade I diastolic dysfunction, (abnormal relaxation pattern). Impression/ Plan: (1) Subjective palpitations, with EKG/telemetry findings reviewed and consistent with supraventricular tachycardia, accelerated junctional rhythm, and likely paroxysmal atrial fibrillation in the setting of newly recognized bifascicular block. -History of stroke episode in 2019 at which time he presented with transient difficulty with processing his reading and MRI at that time revealed acute punctate right occipital lobe infarcts. Workup including echocardiogram and Zio patch negative at that time. -Given stroke history, recommend proceeding with unfractioned heparin infusion with plans to likely transition him to Eliquis tomorrow depending upon need for invasive procedure -High sensitive troponin mildly elevated with measurements of 31.9 and 48 PG per mL, without symptoms of angina without regional wall motion abnormalities. Likely related to tachycardia. -Consider pharmacologic nuclear stress testing as an outpatient after tachycardia issues optimized. -Proceed with metoprolol succinate 25 mg daily (2)History of ankylosing spondylitis -Echocardiogram reveals a trileaflet aortic valve with borderline dilatation of the aortic root, 3.8 cm. -Alkalizing spondylitis can also be associated with conduction system disease, and as noted, patient has bifascicular block which is new compared to 2019. I spent a total of 20 minutes coordinating, documenting, and providing care for this patient excluding time spent in the performance of separately billed services or time spent by another provider. Raymond Stevenson DO History of Present Illness Reason for Consultation: Arrhythmia Requesting Physician: Starr coleman History of Present Illness HPI: Patient is a 70 year old male with PMHx significant for CVA Jun 2019 (on ASA 81mg and Atorvastatin 40mg) that had presented to his PCP office today for a routine physical exam. Patient had expressed acute complaints of multiple episodes of his heart racing which are intermittent in nature with last episode approx 4 days ago. Patient states that the episodes are very random in nature, with no aggrevating or alleviating factors. they can happen with rest and with exertion, but not always with exertion. patient is physically active on a daily basis. He denies chest pain, pressure, palpitations, denies shortness of breath, PND, pre-syncope, syncope or edema. patient denies any recent acute URI symptoms, fevers, chills, no N/V/D, no reports of tick bites. patient states that he first noticed these palpitations in Sep 2024 when his son was hospitalized for several months with significant renal failure issues. episodes had spontaneously resolved for months until now. PCP obtained an EKG which was suggestive of a wide complex tachycardia; possible SVT and right BBB, LAFB. Rate 132bpm, QTc 485ms. Patient was recommended to present to the ER for further evaluation. Repeat EKG upon arrival to the ER with a reduced rate suggests Atrial fibrillation. Notation of T wave inversion in the inferior leads. Chest xray negative Initial troponin 31.9 Patient received 1 time dose of Lopressor 2.5mg IV at 1324. review of telemetry shows Conversion to NSR at 1211. Repeat EKG at the time of my arrival after 1400 suggest an accelerated junctional rhythm. PMHx: 1. Hx of CVA 2019 (placed on ASA and Atorvastatin) MRI dated 07/12/2019 [facility] as follows: IMPRESSION: 1. A couple of punctate acute infarcts within the right occipital lobe. 2. No acute intracranial hemorrhage or mass effect. 2. Ankylosing spondylitis Family history: Grandfather with hx of [place] Allergies Allergy/AdvReac Type Severity Reaction Status Date / Time No Known Allergies Allergy Verified 04/07/25 13:02 Home Medications Medication Instructions Recorded Confirmed Type aspirin 81 mg tablet,delayed 81 mg PO DAILY #90 tabs 07/13/19 04/07/25 Rx release atorvastatin 40 mg tablet 40 mg PO QAM #30 tabs 07/13/19 04/07/25 Rx omega 9-pem-aon-fish oil 1,200 mg 1 cap PO DAILY 05/29/20 04/07/25 History (144 mg-216 mg) capsule (Fish Oil) tadalafil 20 mg tablet 20 mg PO DAILY PRN Sexual Activity 04/07/25 04/07/25 History valacyclovir 1 gram tablet 2 mg PO Q12 PRN Cold Sores 04/07/25 04/07/25 History vitamin B complex 1 tab PO DAILY 04/07/25 04/07/25 History vitamin D3 1,250 mcg (50,000 1 cap PO DAILY 04/07/25 04/07/25 History unit)-vitamin K2 200 mcg capsule Patient History Medical History (Updated 04/07/25 @ 14:59 by NHUNG Treadwell) Hypochondriacal disorder Hypertension Acute CVA (cerebrovascular accident) Visual disturbance Arthritis BPH (benign prostatic hyperplasia) Peyronie's disease Erectile dysfunction Surgical History (Updated 04/07/25 @ 14:30 by NHUNG Alcantara) History of knee surgery Family History (Updated 04/07/25 @ 14:31 by NHUNG Alcantara) Grandmother (Maternal) Cancer Colon Father COPD (chronic obstructive pulmonary disease) Mother Parkinson disease Grandmother (Paternal) Alcohol abuse Cancer Social History (Updated 05/29/20 @ 14:45 by Saroj Calvillo LPN) Smoking Status: Never smoker Do You Dip or Chew Tobacco: No; Hx Alcohol Use: No Hx Substance Use: No Preferred Language: Bulgarian Communication Ability: Effective Joint Machine Operator Required: No Beliefs That Will Affect Care: None marital status: Current Living Situation: Spouse current occupational status: retired Feels Safe at Home: Yes Diet: regular Assistive Devices: None Review of Systems Review of Systems: All systems reviewed & are unremarkable except as noted in HPI & below Physical Exam Constitutional: well developed and well nourished; no acute distress and not ill appearing Neck: normal visual inspection and trachea midline Respiratory: normal respiratory effort, lungs clear to auscultation Cardiovascular: Rate/Rhythm: regular rate and regular rhythm (review of telemetry shows intermittent episodes of A-fib as well) Heart Sounds: normal S1, normal S2 and + murmur (+1/6 systolic murmur) Vessels: dorsalis pedis pulses present; no JVD Extremities: no edema Skin: no rashes, warm and dry Psychiatric: A+Ox3, euthymic affect Results & Data Vital Signs (Past 12 Hours) Vital Signs Temp Pulse Pulse Resp BP BP Pulse Ox 04/07/25 12:20 59 L 04/07/25 11:51 90 19 98 04/07/25 11:51 91 H 21 114/82 98 04/07/25 11:51 04/07/25 11:33 36.7 C 93 H 18 105/70 95 O2 Del Method 04/07/25 12:20 04/07/25 11:51 Room Air 04/07/25 11:51 Room Air 04/07/25 11:51 Room Air 04/07/25 11:33 Room Air Laboratory Results Cardiac Enzymes 04/07/25 Range/Units 11:48 AST 24 (13-39) U/L Troponin I High Sens 31.9 H (0-20) pg/ml CBC 04/07/25 Range/Units 11:48 WBC 6.82 (4.8-10.8) K/ul RBC 4.78 (4.70-6.10) M/uL Hgb 15.1 (14.0-18.0) g/dl Hct 43.9 (42.0-52.0) % Plt Count 235 (130-400) K/uL Neut # (Auto) 5.32 (1.40-6.50) K/uL Lymph # (Auto) 0.95 L (1.20-3.40) K/uL [place] # (Auto) 0.41 (0.11-0.59) K/uL Eos # (Auto) 0.10 (0.00-0.50) K/uL Baso # (Auto) 0.02 (0.00-0.20) K/uL Comprehensive Metabolic Panel 04/07/25 Range/Units 11:48 Sodium 138 (136-145) mmol/L Potassium 4.0 (3.5-5.1) mmol/L Chloride 106 (98-107) mmol/L Carbon Dioxide 28 (21-32) mmol/L BUN 11 (6-23) mg/dl Creatinine 1.00 (0.6-1.4) mg/dl Glucose 136 H (70-99(Fasting)) mg/dl Calcium 9.4 (8.6-10.3) mg/dl AST 24 (13-39) U/L ALT 20 (7-52) U/L Alkaline Phosphatase 73 (34-104) U/L Total Protein 6.9 (6.0-8.3) gm/dl Albumin 3.8 (3.4-5.0) gm/dl Intake and Output 04/06/25 04/07/25 04/07/25 22:59 06:59 14:59 Intake Total 500 / 500 Balance 500 / 500 Intake: IV 500 / 500 Sodium Chloride 0.9% 500 ml @ 500 / 500 999 mls/hr IV .Q31M ONE Rx#: [id number] Other: Weight 88.9 kg Weight Measurement Method Chair Scale Patient Weight 04/08/25 06:59 Weight 88.9 kg PG Care Time/CCT Total # of Minutes Spent Total Time Spent with Patient: Total time spent is greater than 50% in coordination of care (as documented) at patient's floor/unit and/or counseling patient: Coding Level of Care Code 01015 IN/OBS CONSULT LVL 5,80M Diagnoses Atrial fibrillation I48.91 Atrial arrhythmia I49.8 History of CVA (cerebrovascular accident) Z86.73 Time Spent (min) 45
--- NOTE | 2025-04-07 13:49 | History & Physical Report ---
Date of Service April 07, 2025 Assessment & Plan (1) Atrial fibrillation: (2) Atrial arrhythmia: (3) History of CVA (cerebrovascular accident): Plan 70 year old male with PMH significant for CVA (2018) and ankylosing spondylitis who presented to the ED on 04/07/2025 as a referral from his PCP appointment where he reported heart racing and had an abnormal EKG and is being admitted for new onset A fib. New onset atrial fibrillation EKG from PCP with wide QRS and RBBB at rate of 132bpm Repeat EKG in the ED suggesting atrial fibrillation at 93bpm s/p 2.5mg IV metoprolol tartrate and 25mg PO metoprolol succinate in the ED Converted to NSR with rates in the 80s Echo pending Admit to tele Monitor labs and replete as necessary Cardiology consulted: appreciate recs -Heparin gtt -Metoprolol succinate 25mg daily Elevated troponin Initial 31.9, repeat pending History of CVA Continue aspirin and atorvastatin DVT Prophylaxis: Heparin gtt Code Status: FULL CODE - As per discussion at bedside with the patient. PCP: Macho Bennett Disposition: admit to tele Patient seen in collaboration with Dr Quinteros. Please see addendum. I spent a total of 70 minutes coordinating, documenting and providing care for this patient excluding time spent in the performance of separately billed services or time spent by another provider/QHP. Admission and Anticipated Discharge Date Admission Date: 04/07/2025 History of Present Illness Chief Complaint: heart racing Primary Care Provider: Macho Bennett, 70 year old male with PMH significant for CVA (2018) and ankylosing spondylitis who presented to the ED on 04/07/2025 as a referral from his PCP appointment where he reported heart racing and had an abnormal EKG. Patient reports that he has been experiencing intermittent episodes of heart racing since September. Patient reports he had two weeks of heart racing in September while his son was hospitalized which resolved spontaneously. He then experienced similar episodes four days ago. He reports the episodes occur for 1-2 hours at a time and 1-2 times per day. He denies any associated symptoms including chest pain, SOB, dizziness, lightheadedness. He notes they seem to be perpetuated by anxiety. His notes that he sometimes wakes up in the middle of the night with heart racing. He denies fevers, chills, cough, cold symptoms, abdominal pain, N/V/D, dysuria, weakness, fatigue. He denies any tobacco, alcohol, drug intake. He lives at home with his and stepdaughter. Allergies Allergy/AdvReac Type Severity Reaction Status Date / Time No Known Allergies Allergy Verified 04/07/25 13:02 Home Medications Medication Instructions Recorded Confirmed Type aspirin 81 mg tablet,delayed 81 mg PO DAILY #90 tabs 07/13/19 04/07/25 Rx release atorvastatin 40 mg tablet 40 mg PO QAM #30 tabs 07/13/19 04/07/25 Rx omega 4-bgr-liw-fish oil 1,200 mg 1 cap PO DAILY 05/29/20 04/07/25 History (144 mg-216 mg) capsule (Fish Oil) tadalafil 20 mg tablet 20 mg PO DAILY PRN Sexual Activity 04/07/25 04/07/25 History valacyclovir 1 gram tablet 2 mg PO Q12 PRN Cold Sores 04/07/25 04/07/25 History vitamin B complex 1 tab PO DAILY 04/07/25 04/07/25 History vitamin D3 1,250 mcg (50,000 1 cap PO DAILY 04/07/25 04/07/25 History unit)-vitamin K2 200 mcg capsule Past Med/Surg History Problem List (Updated 04/07/25 @ 17:52 by Bob Barkley DO) Elevated troponin (Acute) Palpitations (Acute) Atrial arrhythmia History of CVA (cerebrovascular accident) (Acute) Atrial fibrillation (Acute) Medical History (Updated 04/07/25 @ 17:52 by Bob Barkley DO) Hypochondriacal disorder Hypertension Acute CVA (cerebrovascular accident) Visual disturbance Arthritis BPH (benign prostatic hyperplasia) Peyronie's disease Erectile dysfunction Surgical History (Updated 04/07/25 @ 14:30 by NHUNG Alcantara) History of knee surgery Family History (Updated 04/07/25 @ 14:31 by NHUNG Alcantara) Grandmother (Maternal) Cancer Colon Father COPD (chronic obstructive pulmonary disease) Mother Parkinson disease Grandmother (Paternal) Alcohol abuse Cancer Social History (Updated 05/29/20 @ 14:45 by Saroj Calvillo LPN) Smoking Status: Never smoker Second Hand Exposure: No; Do You Dip or Chew Tobacco: No; Tobacco Cessation Education Requested by Patient: No Hx Alcohol Use: Yes Alcohol type: beer and wine Hx Substance Use: No Preferred Language: Tajik Communication Ability: Effective Quality Eng Required: No Beliefs That Will Affect Care: None marital status: Current Living Situation: Spouse and Family current occupational status: retired Other Information That Helps Us Care for You: No Feels Safe at Home: Yes Safety Concerns: Feels Safe At This Time Diet: regular Assistive Devices: Glasses Review of Systems Review of Systems: All systems reviewed & are unremarkable except as noted in HPI & below Physical Exam Physical Exam: General/Psych: WD/WN, sitting up in bed, NAD, conversing easily, euthymic affect Head: normocephalic, atraumatic Eyes: normal inspection, PERRL, conjunctivae pink, anicteric sclerae ENT: external ear and nose normal, oropharynx normal Neck: normal visual inspection, trachea midline, no thyromegaly Respiratory: normal respiratory effort, lungs clear to auscultation, no wheeze/rales/rhonchi, no accessory muscle use Cardiovascular: regular rate and rhythm, no murmur/rub/gallop, no JVD Extremities: no cyanosis or clubbing, normal peripheral pulses, no BLE edema Abdomen/GI: normal bowel sounds, soft, nontender, no hepatosplenomegaly Neurologic/MSK: A+Ox3, motor strength 5/5, moves all extremities Skin: no rashes, normal color, warm and dry Results & Data Results & Data Vital Signs (Past 12 Hours) Vital Signs Temp Pulse Pulse Resp BP BP Pulse Ox 04/07/25 13:27 76 21 134/78 99 04/07/25 12:20 59 L 04/07/25 11:51 90 19 98 04/07/25 11:51 91 H 21 114/82 98 04/07/25 11:51 04/07/25 11:33 36.7 C 93 H 18 105/70 95 O2 Del Method 04/07/25 13:27 Room Air 04/07/25 12:20 04/07/25 11:51 Room Air 04/07/25 11:51 Room Air 04/07/25 11:51 Room Air 04/07/25 11:33 Room Air Laboratory Results Short CBC 04/07/25 Range/Units 11:48 WBC 6.82 (4.8-10.8) K/ul Hgb 15.1 (14.0-18.0) g/dl Hct 43.9 (42.0-52.0) % Plt Count 235 (130-400) K/uL BMP 04/07/25 11:48 Sodium 138 Potassium 4.0 Chloride 106 Carbon Dioxide 28 BUN 11 Creatinine 1.00 Glucose 136 H Calcium 9.4 Liver Function 04/07/25 Range/Units 11:48 Total Bilirubin 1.4 H (0.2-1.0) mg/dl AST 24 (13-39) U/L ALT 20 (7-52) U/L Alkaline Phosphatase 73 (34-104) U/L Albumin 3.8 (3.4-5.0) gm/dl I have independently reviewed and interpreted patient's admitting labs including CBC, CMP, troponin, TSH. Diagnostic Findings Chest X-Ray 04/07/25 11:46 XR chest 1V portable CLINICAL HISTORY: Chest pain, nonspecific COMPARISON STUDY: Chest radiograph July 12, 2019. FINDINGS: Lung volumes are normal. Lungs are clear. There is no pneumothorax or pleural effusion. Cardiac size is normal. Mediastinal contours are normal. There is no evidence for pulmonary edema. IMPRESSION: No acute cardiopulmonary findings. ACT 112: Negative or not required by law. Electronically signed by: Justin Berg M.D. 04/07/2025 12:09 PM ECG Additional Comments: I have independently reviewed and interpreted patient's admitting EKG which revealed: Atrial fibrillation at a rate of 92bpm; accelerated junctional rhythm with PVCs at a rate of 93bpm, NSR at a rate of 76bpm Code Status & VTE Plan Code Status Full Code Supervising Physician Co-Signing Physician Notes Attending Addendum: Case reviewed with the advanced practitioner. I have personally performed a history and physical examination on the patient. I have reviewed the advanced practitioner's documentation on the date of service referenced in note, and I agree with, and take responsibility for the plan of care. please refer to her notes for full details patient seen and examined, records reviewed by myself as well on exam, patient seen resting in bed, comfortable, sitting up no chest pain, dyspnea, palpitations, dizziness no other symptoms VS noted and reviewed oriented x 3, not in distress, speaks in sentences with no effort nor accessory muscle use normal rate, regular rhythm, no murmurs clear breath sounds bilaterally non distended, soft, nontender no bipedal edema, erythema, warmth no neuro deficits all labs, imaging noted and reviewed ASSESSMENT AND PLAN> ATRIAL FIBRILLATION IN RVR HISTORY OF CVA 2019 started on Metoprolol XL 25mg and Heparin drip at the ER converted to sinus rhythm asymptomatic, BP stable continue Heparin drip and Metoprolol XL for now TSH normal Echo ordered repeat labs in AM appreciate Cardiology service recommendations other diagnoses and plan of care as per advanced practitioner's notes I spent a total of 40 minutes coordinating, documenting, and providing care for this patient, excluding time spent in the performance of separately billed services or time spent by another provider/QHP. Toan Quinteros MD
[2025-04-07 15:13] LABS: Magnesium 2.1 mg/dl (1.7-2.4)
[2025-04-07] MEDS: METOPROLOL SUCC 25MG EXT REL TAB PO ONE (15:25)
[2025-04-07] MEDS: HEPARIN 25000 UNIT/500 ML D5W 25,000 UNITS/500 ML BAG IV SCH (15:26)
[2025-04-07] MEDS: Heparin IV Adult Wt-Based Standard *NO* INITIAL Bolus Protocol IV STA (15:35)
[2025-04-07] MEDS ORDERED: ONDANSETRON INJ 2 MG/ML 2 ML VIAL IV PRN (16:53)
[2025-04-07] MEDS ORDERED: POLYETHYLENE (MIRALAX) 17 GM PACK PO PRN (16:53)
[2025-04-07] MEDS ORDERED: ACETAMINOPHEN 325 MG TAB PO PRN (16:53)
[2025-04-07] MEDS ORDERED: PNEUMOCOCCAL VACCINE (PCV20) 20-VAL CONJ-DIP CRM/PF 0.5 ML SYR IM ONE (17:47)
[2025-04-07 19:12] LABS: INR 1.0 (0.9-1.1); Partial Thromboplastin Time 53 Seconds (21-31); Prothrombin Time 11.3 Seconds (9.0-12.0)
[2025-04-07 21:52] LABS: ANTI-Xa, UFH(UnfractionatedHep 0.64 IU/ml (0.3-0.7)
[2025-04-08 06:13] LABS: Anion Gap 3.0 (3-11); Blood Urea Nitrogen 14.0 mg/dl (6-23); Calcium 8.7 mg/dl (8.6-10.3); Carbon Dioxide 30.0 mmol/L (21-32); Chloride 106.0 mmol/L (98-107); Creatinine Clr Calc Pharmacy 78.8 ml/min; Glucose 83.0 mg/dl (70-99(Fasting)); Magnesium 1.9 mg/dl (1.7-2.4); Potassium 4.0 mmol/L (3.5-5.1); Sodium 139.0 mmol/L (136-145)
[2025-04-08 07:08] LABS: ANTI-Xa, UFH(UnfractionatedHep 1.08 IU/ml (0.3-0.7)
[2025-04-08] MEDS: OMEGA-3 (PURIFIED FISH OIL) 1 GM CAP PO SCH (09:00)
[2025-04-08] MEDS ORDERED: VITAMIN D3 VITAMIN K2 PO SCH (09:00)
[2025-04-08] MEDS: ATORVASTATIN 40 MG TAB PO SCH (09:00)
[2025-04-08] MEDS: METOPROLOL SUCC 25MG EXT REL TAB PO SCH (09:01)
[2025-04-08] MEDS: VITAMIN B COMPLEX TAB PO SCH (09:01)
--- NOTE | 2025-04-08 12:48 | Cardiology Progress Note ---
Date of Service April 08, 2025 Assessment & Plan (1) Elevated troponin: (2) Palpitations: (3) PAF (paroxysmal atrial fibrillation): (4) Accelerated junctional rhythm: (5) Sinus bradycardia: (6) History of CVA (cerebrovascular accident): Plan 70-year-old male with history of prior TIA/CVA admitted on April 07, 2025 with palpitations. EKG and telemetry with newly recognized bifascicular block, SVT, paroxysmal atrial fibrillation/flutter, accelerated junctional rhythm in the 70s, and bradycardia down into the 50s. No significant bradycardia or pauses noted on telemetry. Recommendations: * Repeat EKG * Transition unfractionated heparin to apixaban (Eliquis) of 5 mg twice per day * Continue metoprolol succinate 25 mg/day. * Outpatient pharmacological stress testing and 14-day ambulatory EKG * Possible future need for permanent pacemaker implantation discussed * Consider outpatient cardiac MRI, ? mildly abnormal myocardium appearance on echocardiography * Outpatient cardiology follow-up with Dr. Stevenson in 3 to 4 weeks Admission and Anticipated Discharge Date Admission Date: April 07, 2025 Supervising Physician Co-Signing Physician Notes I have personally performed a history and physical examination on the patient. I have reviewed the advance practitioner's documentation, and I agree with, and take responsibility for the plan of care. 70-year-old male with paroxysmal atrial fibrillation, accelerated junctional rhythm, and supraventricular tachycardia. Rhythm improved on telemetry. Continue metoprolol succinate and apixaban. Outpatient pharmacologic stress testing and 14-day ZIO monitor. Patient will be discharged today. Outpatient cardiology follow-up after completion of testing. Pastor Bates DO, [facility] Subjective Patient seen and examined. Chart, medications, telemetry reviewed. at bedside. Anxious. Intermittently aware of his heart, without overt tachypalpitations. No chest pain. No difficulty breathing. No orthopnea or PND. No peripheral edema. Review of Systems Review of Systems: Complete review of systems is otherwise listed above, negative, or noncontributory Physical Exam Physical Exam: General: A&Ox3. NAD. HENT: Normocephalic. Atraumatic. Eyes: PER. Conjunctiva pink, sclera clear. Neck: No JVD. Heart: RRR. Soft systolic murmur. Lungs: Clear to auscultation. Abdomen: +BS. Soft. Nontender. No masses or organomegaly. Extremities: No clubbing, cyanosis, or edema. Limited neurological examination is without focal deficits. Pulses: Posterior tibial=2/4. Results & Data Vital Signs (Past 12 Hours) Vital Signs Temp Pulse Pulse Resp BP Pulse Ox O2 Del Method 04/08/25 11:13 37.0 C 57 L 18 107/63 96 Room Air 04/08/25 10:00 49 L 04/08/25 08:08 36.7 C 51 L 17 114/59 L 98 Room Air 04/08/25 03:24 36.5 C 51 L 20 113/68 98 Room Air Laboratory Results Cardiac Enzymes 04/07/25 Range/Units 14:44 Troponin I High Sens 48.0 H D (0-20) pg/ml Coagulation 04/07/25 Range/Units 18:17 PT 11.3 (9.0-12.0) Seconds APTT 53 H (21-31) Seconds Comprehensive Metabolic Panel 04/08/25 Range/Units 05:23 Sodium 139 (136-145) mmol/L Potassium 4.0 (3.5-5.1) mmol/L Chloride 106 (98-107) mmol/L Carbon Dioxide 30 (21-32) mmol/L BUN 14 (6-23) mg/dl Creatinine 1.00 (0.6-1.4) mg/dl Glucose 83 (70-99(Fasting)) mg/dl Calcium 8.7 (8.6-10.3) mg/dl Intake and Output 04/07/25 04/08/25 04/08/25 22:59 06:59 14:59 Intake Total 313.667 / 1113.667 300 / 1113.667 378.716 / 378.716 Balance 313.667 / 1113.667 300 / 1113.667 378.716 / 378.716 Intake: IV 113.667 / 613.667 378.716 / 378.716 Heparin 20832 Unit/500 ml D5w 113.667 / 113.667 378.716 / 378.716 25,000 units In 500 ml @ 1,550 UNITS/HR 31 mls/hr IV .[id number] NOEMI Rx#:[id number] Oral 200 / 500 300 / 500 Other: # Unmeasured Voids 1 2 Weight 89.5 kg 89.2 kg Weight Measurement Method Built in [facility] Built in [facility] Diagnostic Findings April 07, 2025 TTE ([facility], Dr. Stevenson): Sinus rhythm was present during echocardiogram study. There is mild concentric left ventricular hypertrophy. The left ventricular wall motion is normal. Left ventricular systolic function is low normal. Left ventricular ejection fraction = 50-55%. The aortic root is borderline dilated, 3.8 cm. The proximal ascending order diameter is normal. Grade I diastolic dysfunction, (abnormal relaxation pattern). April 07, 2025 EKG with probable accelerated junctional rhythm with a ventricular rate of 76 bpm, right bundle branch block, left posterior fascicular block, bifascicular block. QTc 456 ms. Telemetry reviewed. Rhythm predominantly sinus with intermittent accelerated junctional rhythm and 70s, mild bradycardia into the 50s. No overt atrial fibrillation overnight. PG Care Time/CCT Total # of Minutes Spent Total Time Spent with Patient: Total time spent is greater than 50% in coordination of care (as documented) at patient's floor/unit and/or counseling patient: Coding Level of Care Code 70280 SUB INP/OBS CARE 3/50MIN Diagnoses Elevated troponin R79.89 Palpitations R00.2 PAF (paroxysmal atrial fibrillation) I48.0 Accelerated junctional rhythm I49.8 Sinus bradycardia R00.1 History of CVA (cerebrovascular accident) Z86.73
[2025-04-08] MEDS: ASPIRIN 81 MG ECTAB PO SCH (13:29)
--- NOTE | 2025-04-08 13:50 | Hospitalist Progress Note ---
Date of Service April 08, 2025 Assessment & Plan (1) Atrial fibrillation: (2) Atrial arrhythmia: (3) History of CVA (cerebrovascular accident): Plan 70 year old male with PMH significant for CVA (2019) and ankylosing spondylitis who presented to the ED on 04/07/2025 as a referral from his PCP appointment where he reported heart racing and had an abnormal EKG and is being admitted for new onset A fib. New onset atrial fibrillation Accelerated junctional rhythm EKG from PCP with wide QRS and RBBB at rate of 132bpm Repeat EKG in the ED suggesting atrial fibrillation at 93bpm Echocardiogram shows EF of 50 to 55%; mild concentric LVH. Grade 1 diastolic dysfunction. Aortic root is borderline dilated at 3.8 cm. Continue on metoprolol succinate 25 mg once a day; monitor on telemetry for pauses. Start on Eliquis for stroke prophylaxis Elevated troponin In setting of atrial fibrillation High sensitive troponin of 31.9; elevated up to 48 no chest pain Echo as above History of CVA -stop aspirin as Eliquis is started, continue on lipitor DVT Prophylaxis: Eliquis Code Status: FULL CODE - PCP: Macho Bennett Time spent evaluating patient, direct bedside care, chart review, placing orders, interpretation of diagnostic studies, discussion with consultants, patient, and family members, as well as other required patient management activities is 50 minutes Please note the above document was generated using voice recognition software. It may contain grammatical, syntax or spelling errors. Any formal questions or concerns about the content, text or information contained within the body of this dictation should be directly addressed to the provider for clarification Admission and Anticipated Discharge Date Admission Date: April 07, 2025 Subjective Patient seen and examined at bedside. He is comfortable; not in distress. Reports some intermittent palpitation. No chest pain. Review of Systems Review of Systems: All systems reviewed & are unremarkable except as noted in Subjective Physical Exam Physical Exam: Constitutional: WD/WN, vitals as above, NAD, sitting up in bed, pleasant, conversing easily Respiratory: normal respiratory effort, lungs clear to auscultation, no wheeze, rales, rhonchi. Normal insp/exp effort, no accessory muscle use Cardiovascular: irregular, no murmur, no edema Vessels: no JVD or carotid bruit Chest: normal inspection of chest Abdomen: normal bowel sounds, soft, nontender, no hepatosplenomegaly Musculoskeletal: no cyanosis or clubbing, extremities motor strength 5/5 Skin: no rashes, warm and dry normal turgor Neurologic: PERRL, EOMI, accommodation nl, no face palsy, no dysarthria CN's II- XI intact bilaterally and moves all extremities Psychiatric: A+Ox3, euthymic affect Results & Data Results & Data Vital Signs (Past 12 Hours) Vital Signs Temp Pulse Pulse Resp BP Pulse Ox O2 Del Method 04/08/25 11:13 37.0 C 57 L 18 107/63 96 Room Air 04/08/25 10:00 49 L 04/08/25 08:08 36.7 C 51 L 17 114/59 L 98 Room Air 04/08/25 03:24 36.5 C 51 L 20 113/68 98 Room Air (1) Atrial fibrillation Atrial fibrillation type: unspecified Qualified Code(s): I48.91 - Unspecified atrial fibrillation
[2025-04-08 15:32] VITALS: BP 114/76; RESP 16; TEMP 98.4; O2SAT 99
--- NOTE | 2025-04-08 16:33 | Discharge Summary ---
Date of Service April 08, 2025 Admission HPI Per Admitting Provider 70 year old male with PMH significant for CVA (2019) and ankylosing spondylitis who presented to the ED on 04/07/2025 as a referral from his PCP appointment where he reported heart racing and had an abnormal EKG. Patient reports that he has been experiencing intermittent episodes of heart racing since September. Patient reports he had two weeks of heart racing in September while his son was hospitalized which resolved spontaneously. He then experienced similar episodes four days ago. He reports the episodes occur for 1-2 hours at a time and 1-2 times per day. He denies any associated symptoms including chest pain, SOB, dizziness, lightheadedness. He notes they seem to be perpetuated by anxiety. His notes that he sometimes wakes up in the middle of the night with heart racing. He denies fevers, chills, cough, cold symptoms, abdominal pain, N/V/D, dysuria, weakness, fatigue. He denies any tobacco, alcohol, drug intake. He lives at home with his and stepdaughter. Admission Exam Per Admitting Provider General: A&Ox3. NAD. HENT: Normocephalic. Atraumatic. Eyes: PER. Conjunctiva pink, sclera clear. Neck: No JVD. Heart: RRR. Soft systolic murmur. Lungs: Clear to auscultation. Abdomen: +BS. Soft. Nontender. No masses or organomegaly. Extremities: No clubbing, cyanosis, or edema. Limited neurological examination is without focal deficits. Pulses: Posterior tibial=2/4. Principal Diagnosis Atrial fibrillation Necessary junctional rhythm Supraventricular tachycardia Discharge Exam Constitutional: WD/WN, vitals as above, NAD, sitting up in bed, pleasant, conversing easily Respiratory: normal respiratory effort, lungs clear to auscultation, no wheeze, rales, rhonchi. Normal insp/exp effort, no accessory muscle use Cardiovascular: irregular, no murmur, no edema Vessels: no JVD or carotid bruit Chest: normal inspection of chest Abdomen: normal bowel sounds, soft, nontender, no hepatosplenomegaly Musculoskeletal: no cyanosis or clubbing, extremities motor strength 5/5 Skin: no rashes, warm and dry normal turgor Neurologic: PERRL, EOMI, accommodation nl, no face palsy, no dysarthria CN's II- XI intact bilaterally and moves all extremities Psychiatric: A+Ox3, euthymic affect Discharge Data Allergies Allergy/AdvReac Type Severity Reaction Status Date / Time No Known Allergies Allergy Verified 04/07/25 13:02 Consultations 04/07/25 13:04 ED Decision to Admit Stat 04/07/25 16:53 Consult Cardiology Routine Hospital Course (1) Atrial fibrillation: (2) Atrial arrhythmia: (3) History of CVA (cerebrovascular accident): Plan 70 year old male with PMH significant for CVA (2018) and ankylosing spondylitis who presented to the ED on 04/07/2025 as a referral from his PCP appointment where he reported heart racing and had an abnormal EKG and is being admitted for new onset A fib. New onset atrial fibrillation Accelerated junctional rhythm Patient was admitted to the hospital for concern of atrial fibrillation EKG from PCP with wide QRS and RBBB at rate of 132bpm Repeat EKG in the ED suggesting atrial fibrillation at 93bpm Echocardiogram shows EF of 50 to 55%; mild concentric LVH. Grade 1 diastolic dysfunction. Aortic root is borderline dilated at 3.8 cm. Patient was admitted to the medical floor; was started on metoprolol 25 mg. He was observed on telemetry for any significant pauses. Patient ventricular rate was well-controlled on the metoprolol dosing. He was also prescribed Eliquis for stroke prophylaxis. Cardiology recommended outpatient pharmacological stress test along with 14-day ZIO monitor. Please note the above document was generated using voice recognition software. It may contain grammatical, syntax or spelling errors. Any formal questions or concerns about the content, text or information contained within the body of this dictation should be directly addressed to the provider for clarification Total Time Total Time Spent Total Time Spent (In Minutes): 45 Total Time Includes: Examination of the Patient, Discharge Planning, Medication Reconciliation, Communication With Other Providers and Other Discharge Plan Discharge Items Patient Disposition: Home - Self-Care Reason For Visit: TACHYCARDIA Discharge Diagnosis: (1) Elevated troponin: (2) Palpitations: (3) PAF (paroxysmal atrial fibrillation): (4) Accelerated junctional rhythm: (5) Sinus bradycardia: (6) History of CVA (cerebrovascular accident): Condition on Discharge: Fair Activity: Resume your previous activity Non-emergency contact: Primary Care Provider Call non-emergency contact if: you have any medication questions and your symptoms worsen Follow-up/Referrals: Macho Bennett, [Primary Care Provider] - Diet: Regular Addtl Attending Provider Instructions: You were admitted to the hospital due to irregular heart rhythm called atrial fibrillation. You are monitored during the hospitalization on the telemetry. You are prescribed following medication; Take metoprolol 25 mg once a day Take Eliquis 5 mg twice a day Stop taking Aspirin Follow-up with cardiology as outpatient; you will be undergoing outpatient pharmacological stress test and cardiac monitoring. An appointment will be set up with your primary care doctor for follow-up Pending Studies at Discharge: No Stand-Alone Forms: [facility] [place], Smoking Cessation Medications and DC Order Prescriptions: New metoprolol succinate 25 mg Tablet Extended Release 24 Hr 25 mg PO QAM Qty: 30 0RF Eliquis 5 mg Tablet 5 mg PO BID Qty: 60 0RF Continued omega 5-rbl-bsk-fish oil [Fish Oil] 1,200 (144-216) mg capsule 1 cap PO DAILY atorvastatin 40 mg Tablet 40 mg PO QAM Qty: 30 2RF vitamin B complex Tablet 1 tab PO DAILY vitamin D3-vitamin K2 1,250-200 mcg Capsule 1 cap PO DAILY valacyclovir 1 gram tablet 2 mg PO Q12 PRN (Reason: Cold Sores) tadalafil 20 mg Tablet 20 mg PO DAILY PRN (Reason: Sexual Activity) Rx Instructions: administer approximately 30min before sexual activity; do not use more than 1 dose per 24hrs Discontinued aspirin 81 mg tablet,delayed release (DR/EC) 81 mg PO DAILY Qty: 90 1RF Discharge Orders: Discharge Order (Routine); Ordered 04/08/25 Ordered By: Taz Leslie Admission Data Admit Date/Time: 04/07/25 14:41 Attending Provider: Taz Leslie Admit Provider: Toan Quinteros Primary Care Provider: Macho Bennett Other Providers: Joan Baez; Toan Quinteros; Raymond Stevenson Other Interventions: Discharge Summary Assessment (RN) Last Done: 04/08/25 16:00
[2025-04-08 16:41] VITALS: PULSE 58
[2025-04-08] MEDS ORDERED: APIXABAN 5 MG TABLET PO SCH (21:00)
--- NOTE | 2025-04-10 07:46 | Electrocardiogram Report ---
Test Reason : Blood Pressure : */* mmHG Vent. Rate : 92 BPM Atrial Rate : * BPM P-R Int : * ms QRS Dur : 102 ms QT Int : 352 ms P-R-T Axes : * 168 -14 degrees QTcB Int : 435 ms Atrial fibrillation Incomplete right bundle branch block Possible Right ventricular hypertrophy Abnormal QRS-T angle, consider primary T wave abnormality Abnormal ECG When compared with ECG of 12-Jul-2019 23:53, Atrial fibrillation has replaced Sinus rhythm Incomplete right bundle branch block is now Present T wave inversion now evident in Inferior leads Confirmed by Shelbi Fernández (Jameel) on 04/10/2025 7:46:02 AM Referred By: Confirmed By: Shelbi Fernández
--- NOTE | 2025-04-10 08:17 | Electrocardiogram Report ---
Test Reason : Blood Pressure : */* mmHG Vent. Rate : 93 BPM Atrial Rate : * BPM P-R Int : * ms QRS Dur : 96 ms QT Int : 356 ms P-R-T Axes : * 164 -23 degrees QTcB Int : 442 ms Aflutter with PVC Incomplete right bundle branch block Possible Right ventricular hypertrophy Abnormal QRS-T angle, consider primary T wave abnormality Abnormal ECG When compared with ECG of 07-Apr-2025 11:41, (unconfirmed) in comparison with previous ekg, no change Confirmed by Shelbi Fernández ([id number]) on 04/10/2025 8:17:05 AM Referred By: Confirmed By: Shelbi Fernández
--- NOTE | 2025-04-10 09:41 | Electrocardiogram Report ---
Test Reason : Blood Pressure : */* mmHG Vent. Rate : 76 BPM Atrial Rate : * BPM P-R Int : * ms QRS Dur : 126 ms QT Int : 406 ms P-R-T Axes : * 171 -17 degrees QTcB Int : 456 ms Accelerated Junctional Rhythm; cannot r/o underlying Atrial Fibrillation Right bundle branch block Left posterior fascicular block Bifascicular block Abnormal ECG When compared with ECG of 07-Apr-2025 11:46, (unconfirmed) No significant change was found Confirmed by Shelbi Fernández (Jameel) on 04/10/2025 9:41:00 AM Referred By: REFERRED SELF Confirmed By: Shelbi Fernández
--- NOTE | 2025-04-10 10:25 | Electrocardiogram Report ---
Test Reason : Blood Pressure : */* mmHG Vent. Rate : 50 BPM Atrial Rate : 50 BPM P-R Int : 150 ms QRS Dur : 96 ms QT Int : 438 ms P-R-T Axes : 73 98 76 degrees QTcB Int : 399 ms Sinus bradycardia Rightward axis Borderline ECG When compared with ECG of 07-Apr-2025 14:09, (unconfirmed) Sinus rhythm has replaced Wide QRS rhythm Vent. rate has decreased by 26 bpm Confirmed by Ruperto Pickens ([id number]) on 04/10/2025 10:25:07 AM Referred By: REFERRED SELF Confirmed By: Ruperto Pickens
== END 2025-04-08 17:39 | disposition home or self-care (01) | DRG 310 ==
LOC: ED 11:27 → 4W 14:41 → SUATTDRO 14:41 → 4W 16:20